=== PATIENT | male | born 1975 | race Asian ===

== ENCOUNTER 2024-05-11 15:25 | Emergency (ER) | payer MEDICAID, SELFPAY ==
[2024-05-11 15:52] VITALS: BP 127/84; PULSE 79; RESP 19; TEMP 36.9; O2SAT 96; BMI 33.5
--- NOTE | 2024-05-11 15:55 | XR_ITS ---
Examination: Abdomen sonogram, Limited Date and time of exam: May 11, 2024 1759 hrs. Indications: Right upper abdominal pain beginning 2 days ago Technique: Real-time lopez scale transabdominal sonographic images of the upper abdomen obtained. Findings: Cholelithiasis, negative for cholecystitis Abnormal enlargement, bile duct 0.8 cm Pancreatic head 2.5 cm Liver 16 cm fatty infiltration no focal liver lesions Normal hepatopedal portal venous oh Patent IVC Impression: Cholelithiasis, negative for cholecystitis Abnormal enlargement, bile duct 0.8 cm, recommend MRCP follow-up to exclude common bile duct stones and/or stricture
--- NOTE | 2024-05-11 15:56 | PD.EDRME ---
Rapid Medical Screening Exam RME Arrival date/time: 05/11/24 15:25 48-year-old male with history of cholelithiasis presents to the emergency department complaint of right upper abdominal pain Chief Complaint: Abdominal Pain Time Seen by Provider: 05/11/24 15:50 Vital signs: Vital Signs Temperature 98.5 F 05/11/24 15:52 Pulse Rate 79 05/11/24 15:52 Respiratory Rate 19 05/11/24 15:52 Blood Pressure 127/84 05/11/24 15:52 Pulse Oximetry (%) 96 05/11/24 15:52 Oxygen Delivery Method Room Air 05/11/24 15:52
[2024-05-11] MEDS: HYDROcodone/APAP 5/325 TABLET 1 TAB PO (16:25)
[2024-05-11 16:34] LABS: Collection Type, Urine Clean Catch
[2024-05-11 16:41] LABS: Basophils % (Auto) 0 % (0-2.5); Eosinophils # (Auto) 0.1 Thou/mm3 (0.0-0.5); Eosinophils % (Auto) 1 % (0-10); Hematocrit 43.7 % (41.0-53.0); Hemoglobin 14.9 g/dL (13.5-16.0); Immature Granulocytes % (Auto) 0 % (0-0); Immature Granulocytes Auto 0.02 Thou/mm3 (0.00-0.00); Lymphocytes # (Auto) 1.5 Thou/mm3 (1.0-4.8); Lymphocytes % (Auto) 24 % (10-50); Mean Corpuscular HGB Conc 34.1 g/dl (31.0-37.0); Mean Corpuscular Hemoglobin 31.2 pg (25.0-35.0); Mean Corpuscular Volume 91 fL (80-100); Monocytes # (Auto) 0.4 Thou/mm3 (0.0-0.8); Monocytes % (Auto) 7 % (0-12); Neutrophils # (Auto) 4.1 Thou/mm3 (1.8-7.7); Neutrophils % (Auto) 68 % (37-80); Nucleated Red Blood Cell % 0 /100 WBC (0); Platelet Count 201 Thou/mm3 (140-440); RDW Standard Deviation 45.7 fL (35.1-43.9); Red Blood Count 4.78 Miln/mm3 (4.50-5.90)
[2024-05-11 16:51] LABS: Bacteria,Urine Rare; Bilirubin,Urine 1+ (Negative); Blood,Urine Negative (Negative); Clarity,Urine Clear (Clear/Hazy); Color,Urine Yellow (Lt Yel-Yel); Culture Indicated,Urine Not Indicated; Glucose, Urine Negative (Negative); Ketones,Urine Negative (Negative); Leukocyte Esterase,Urine Negative (Negative); Nitrite,Urine Negative (Negative); PH,Urine 6.5 (5.0-7.0); Protein,Urine 1+ (Neg - Trace); RBC,Urine 5 /hpf (0-3); Squamous Epithelial Cell,Urine 1 /hpf (0-5); WBC,Urine 1 /hpf (0-5)
[2024-05-11 17:09] LABS: Alanine Aminotransferase 454 U/L (10-49); Albumin, Serum 4.5 gm/dL (3.5-5.0); Albumin/Globulin Ratio 1.4 (1.2-2.2); Alkaline Phosphatase 314 U/L (46-116); Anion Gap 6 (7-16); Aspartate Amino Transferase 273 U/L (0-34); BUN/Creatinine Ratio 13 Ratio (12-20); Bilirubin,Total 1.7 mg/dL (0.3-1.2); Blood Urea Nitrogen 14 mg/dL (9-23); Calcium 9.6 mg/dL (8.3-10.6); Calcium (Corrected) 9.6 mg/dL (8.5-10.1); Carbon Dioxide 26.8 mMol/L (20.0-31.0); Chloride 104 mMol/L (98-107); Creatinine (Component) 1.1 mg/dL (0.6-1.3); Estimated Creatinine Clearance 82.4 mL/min (>60); Globulin 3.2 gm/dL (2.3-3.5); Glucose 114 mg/dL (74-106); Lipase 41 U/L (12-53); Osmolality,Calculated 275 (275-295); Potassium 3.7 mMol/L (3.4-5.1); Sodium 137 mMol/L (136-145); Total Protein 7.7 gm/dL (5.7-8.2); eGFR > 60 See Note
[2024-05-11 21:13] VITALS: BP 165/108; PULSE 66; RESP 17; TEMP 36.8; O2SAT 98
--- NOTE | 2024-05-11 21:35 | EDNOTE_ITS ---
ED General RME/HPI General Chief complaint: Abdominal Pain Stated complaint: GALLBLADDDER PAIN EVERY TIME EATING / DRINKING Time Seen by Provider: 05/11/24 15:50 Arrival date/time: 05/11/24 15:25 CC: Right upper quadrant abdominal pain HPI ongoing for the past 6 to 7 days with persistent nausea and states he is also had some weight loss. No prior history of similar events. Patient denies chest pain shortness of breath or difficulty breathing. Currently the pain is a 6 to an 8 on a 10 scale patient is not writhing and not tachycardic. No active vomiting at the time of exam. RME / HPI RME / HPI narrative: 05/11/24 15:25 48-year-old male with history of cholelithiasis presents to the emergency department complaint of right upper abdominal pain Related Data Home Medications ?Medication ?Instructions ?Recorded ?Confirmed isavuconazonium sulfate 186 mg 186 mg PO QDAY 09/24/23 04/28/24 capsule (Cresemba) Previous Rx's ?Medication ?Instructions ?Recorded entecavir 0.5 mg tablet 0.5 mg PO QDAY #30 tabs 11/17/23 metoprolol succinate 25 mg 25 mg PO QDAY 30 days #30 tabs 12/08/23 tablet,extended release 24 hr zolpidem 5 mg tablet (Ambien) 5 mg PO QHS #30 tabs 01/05/24 sildenafil 25 mg tablet (Viagra) 25 mg PO QDAY PRN sexual activity 01/26/24 #30 tabs trazodone 50 mg tablet 25 mg (1/2 x 50 mg) PO QHS PRN 01/26/24 insomnia #30 tabs bupropion HCl 150 mg 24 hr tablet, 300 mg (2 x 150 mg) PO QAM #30 tabs 03/17/24 extended release hydrocodone 5 mg-acetaminophen 325 1 tab PO Q8H PRN pain #60 tabs 03/17/24 mg tablet sacubitril 24 mg-valsartan 26 mg 1 tab PO BID #60 tabs 03/17/24 tablet (Entresto) simethicone 80 mg chewable tablet 80 mg PO QHS #30 tabs 03/17/24 (Gas Relief (simethicone)) spironolactone 25 mg tablet 25 mg PO QDAY #30 tabs 03/17/24 hydrocodone 5 mg-acetaminophen 325 2 tab PO TID PRN pain #30 tabs 04/01/24 mg tablet oxycodone-acetaminophen 5 mg-325 1 tab PO BID #14 tabs 04/03/24 mg tablet (Percocet) aspirin 81 mg tablet,delayed 81 mg PO QDAY 30 days #30 tabs 05/05/24 release (Adult Low Dose Aspirin) furosemide 20 mg tablet (Lasix) 20 mg PO BID #60 tabs 05/05/24 gabapentin 300 mg capsule 600 mg (2 x 300 mg) PO TID #90 caps 05/05/24 hydrocodone 5 mg-acetaminophen 300 1 tab PO BID PRN pain #10 tabs 05/05/24 mg tablet hydrocortisone 1 % topical cream 1 applic topical QID PRN put for 05/05/24 (Cortisone (hydrocortisone)) itching #28.4 grams valacyclovir 1 gram tablet 1,000 mg PO QDAY #5 tabs 05/05/24 Allergies Allergy/AdvReac Type Severity Reaction Status Date / Time No Known Allergies Allergy Verified 05/11/24 15:27 Review of Systems Review of Systems Narrative Review of Systems: GEN: No fever, no chills, no weight loss EYES: No discharge, no visual changes, no pain HEENT: No ear pain, no congestion, no sore throat PULM: No shortness of breath, no cough, no congestion CV: No chest pain, no dyspnea on exertion, no palpitations GI: No nausea, no vomiting, no diarrhea, + pain, no constipation : No frequency, no urgency, no dysuria MUSC/SKEL: No joint pain, no back pain SKIN: No rash PSYCH: No hallucinations, no depression HEME/LYMPH: No easy bleeding or bruising tendencies NEURO: No weakness, no headache Past Medical History Past Medical History NEUROLOGIC: Negative Cerebrovascular Accident, Alzheimer's Disease or Parkinson's Disease CARDIAC: Positive Cardiac Disorders, Congenital Heart Disease, Valvular Heart Disease and Hypertension; Negative Myocardial Infarction, Congestive Heart Failure or Varicose Veins RESPIRATORY: Positive Cough; Negative Chronic Obstructive Pulmonary Disease (COPD), Asthma or Wheezing GASTROINTESTINAL: Positive Hepatitis GENITOURINARY: Negative Renal Disease or Kidney Stones REPRODUCTIVE: Negative Syphilis ENDOCRINE: Negative Diabetes Mellitus Type 1 or Diabetes Mellitus Type 2 HEMATOLOGIC: Positive Anemia; Negative Sickle Cell Disease PSYCHO/SOCIAL: Positive Recreational Drug Use and Anxiety OTHER HISTORY: Positive Hospitalization, Falls, Blood Transfusions and Hepatitis B Surgical History SURGICAL: Positive Cardiac Surgery, Valve Replacement and Pacemaker Social History SMOKING STATUS: Never smoker ED Exam Narrative Physical exam: [General: Obese in mild discomfort but not in any acute distress Head normocephalic HEENT: Within acceptable limits Neck is supple nontender Chest equal chest rise nontender to palpation Respiratory: Clear to auscultation no wheezes crackles or rubs CV: Rate rhythm is regular no murmurs rubs or clicks Abdomen is distended secondary to body habitus with right upper quadrant epigastric tenderness to palpation no left upper quadrant or lower occult quadrant tenderness with palpation. Back: No CVA tenderness no spinous process tenderness from cervical spine thoracic and lumbar spine Skin: Intact no petechiae rash induration ulceration or crepitus Extremities: Moving all extremity against resistance cap refill less than 2 seconds neurosensory intact Neuro: Awake alert oriented x3 Glascow coma 15 no focal deficits] Course Quality Measures none Orders Category Date Time Status US gall bladder Stat Exams 05/11/24 15:55 Completed CBC Stat Lab 05/11/24 16:21 Completed Comprehensive Metabolic Panel Stat Lab 05/11/24 16:21 Completed Lipase Stat Lab 05/11/24 16:21 Completed UA, C/S IF [Urinalysis, C/S if Indicated] Stat Lab 05/11/24 16:15 Completed HYDROcodone*/APAP 5/325 [Barre 5/325] Med 05/11/24 15:55 Discontinued 1 tab PO X1 ONE Ondansetron Odt [Zofran Odt] Med 05/11/24 21:42 Discontinued 4 mg PO X1 ONE oxyCODONE/APAP 5/325 [Percocet 5/325] Med 05/11/24 21:42 Discontinued 1 tab PO X1 ONE Vital Signs Vital signs: Vital Signs Temperature 98.5 F 05/11/24 15:52 Pulse Rate 79 05/11/24 15:52 Respiratory Rate 19 05/11/24 15:52 Blood Pressure 127/84 05/11/24 15:52 Pulse Oximetry (%) 96 05/11/24 15:52 Oxygen Delivery Method Room Air 05/11/24 15:52 [facility] Patient data External records reviewed:: [facility] previous records Clinical information provided by:: patient Social determinants that could affect healthcare access:: none Patient has the following chronic illnesses:: Aortic valve replacement x 2, pacemaker CHF hypertension How is presenting disease/condition affected by chronic disease/condition?: u neffected by Evaluation data The following diagnostics were reviewed and interpreted by me:: lab results and radiology exam(s) Lab and/or radiology exams considered but not ordered:: CBC shows no acute leukocytosis anemia thrombocytopenia CMP shows no acute electrolyte imbalances renal impairment T. bili 1.7 AST 2748 ALT of 454 Alk phos is 314 Urine is negative Ultrasound shows cholelithiasis with possible CBD obstruction, recommend MRCP Interpretation Summary: Patient has an appointment with his vermin exterminator at [facility] in [place] tomorrow morning patient was offered to hold in the emergency room until tomorrow morning for MRCP. The patient has declined this, is requesting mild pain medications his to drive him up to [facility], and he will check into the hospital at [place] tomorrow. Patient was again offered admission and explained ERCP require transfer to another facility if the MRCP was positive. The patient again declined holding [facility], and will drive straight up to [facility] in [place]. Medications Medications considered but not ordered:: None Medication administrations:: Medication Administration History Discontinued Medications Hydrocodone Bitart/Acetaminophen (Hydrocodone/Apap 5/325 Tablet) 1 tab PO X1 ONE Stop: 05/11/24 15:56 Last Admin: 05/11/24 16:25 Dose: 1 tab Documented By: ARCHANA Ondansetron HCl (Ondansetron Odt 4 Mg Tabrap) 4 mg PO X1 ONE; Protocol Stop: 05/11/24 21:43 Last Admin: 05/11/24 21:50 Dose: 4 mg Documented By: Oxycodone/Acetaminophen (Oxycodone/Apap 5/325 Tablet) 1 tab PO X1 ONE Stop: 05/11/24 21:43 Last Admin: 05/11/24 21:49 Dose: 1 tab Documented By: None Consultations Consultation(s) initiated? (list below): No Diagnosis Differential Diagnosis ED Complaint MDM: Cholelithiasis cholecystitis pancreatitis choledocholithiasis Most likely diagnosis given after review of the tests above:: Right upper quadrant abdominal pain cholelithiasis Admission Indicated Admission indicated?: not indicated Explain why admission is indicated or not indicated:: Patient declined overnight hold in the ER for MRCP in the morning and will drive up to another facility Admission Request Was there a request for admission?: No Disposition Plan Disposition Plan: Discharge Discharge Attestation Discharge Attestation: The patient and all family members were given an opportunity to ask questions and understood the discharge instructions. Discharge instructions specifically effects, indications for sooner follow up or return to the emergency department, and the expected course of current diagnosis. Patient condition: Stable Medical Decision Making Differential Diagnosis Differential Diagnosis: Cholelithiasis cholecystitis pancreatitis choledocholithiasis Lab Data 05/11/24 16:21 05/11/24 16:21 Labs: Lab Results 05/11/24 05/11/24 Range/Units 16:15 16:21 WBC 6.0 (3.8-10.6) Thou/mm3 RBC 4.78 (4.50-5.90) Miln/mm3 Hgb 14.9 (13.5-16.0) g/dL Hct 43.7 (41.0-53.0) % MCV 91 (80-100) fL MCH 31.2 (25.0-35.0) pg MCHC 34.1 (31.0-37.0) g/dl RDW Std Deviation 45.7 H (35.1-43.9) fL Plt Count 201 (140-440) Thou/mm3 Neut % (Auto) 68 (37-80) % Lymph % (Auto) 24 (10-50) % [place] % (Auto) 7 (0-12) % Eos % (Auto) 1 (0-10) % Baso % (Auto) 0 (0-2.5) % Neut # (Auto) 4.1 (1.8-7.7) Thou/mm3 Lymph # (Auto) 1.5 (1.0-4.8) Thou/mm3 [place] # (Auto) 0.4 (0.0-0.8) Thou/mm3 Eos # (Auto) 0.1 (0.0-0.5) Thou/mm3 Baso # (Auto) 0.0 (0.0-0.2) Thou/mm3 Immature Gran # (Auto) 0.02 H (0.00-0.00) Thou/mm3 Absolute Nucleated RBC 0.00 (0.00-0.00) Thou/mm3 Immature Gran % 0 (0-0) % Nucleated RBC % 0 (0) /100 WBC Sodium 137 (136-145) mMol/L Potassium 3.7 (3.4-5.1) mMol/L Chloride 104 (98-107) mMol/L Carbon Dioxide 26.8 (20.0-31.0) mMol/L Anion Gap 6 L (7-16) BUN 14 (9-23) mg/dL Creatinine 1.1 (0.6-1.3) mg/dL Estim Creat Clear Calc 82.4 (>60) mL/min eGFR > 60 (60 - ) See Note BUN/Creatinine Ratio 13 (12-20) Ratio Glucose 114 H (74-106) mg/dL Calculated Osmolality 275 (275-295) Calcium 9.6 (8.3-10.6) mg/dL Corrected Calcium 9.6 (8.5-10.1) mg/dL Total Bilirubin 1.7 H (0.3-1.2) mg/dL AST 273 H (0-34) U/L ALT 454 H (10-49) U/L Alkaline Phosphatase 314 H (46-116) U/L Total Protein 7.7 (5.7-8.2) gm/dL Albumin 4.5 (3.5-5.0) gm/dL Globulin 3.2 (2.3-3.5) gm/dL Albumin/Globulin Ratio 1.4 (1.2-2.2) Lipase 41 (12-53) U/L Ur Collection Type Clean Catch Urine Color Yellow (Lt Yel-Yel) Urine Clarity Clear (Clear/Hazy) Urine pH 6.5 (5.0-7.0) Ur Specific [place] 1.030 (1.001-1.035) Urine Protein 1+ A (Neg - Trace) Urine Glucose (UA) Negative (Negative) Urine Ketones Negative (Negative) Urine Blood Negative (Negative) Urine Nitrite Negative (Negative) Urine Bilirubin 1+ A (Negative) Urine Urobilinogen (Auto) 8.0 (0.0-1.0) mg/dL Ur Leukocyte Esterase Negative (Negative) Urine RBC 5 H (0-3) /hpf Urine WBC 1 (0-5) /hpf Ur Squamous Epith Cells 1 (0-5) /hpf Urine Bacteria Rare (None) Ur Culture Indicated? Not Indicated Discharge Plan Plan Patient Disposition: HOME (Self Care) Patient condition on transfer: Stable Prescriptions/Referrals Prescriptions/Med Rec: No Action Cresemba 186 mg capsule 186 mg PO QDAY zolpidem [Ambien] 5 mg tablet 5 mg PO QHS Qty: 30 0RF Rx Instructions: may repeat once if no response in 30-60 minutes sildenafil [Viagra] 25 mg tablet 25 mg PO QDAY PRN (Reason: sexual activity) Qty: 30 0RF Rx Instructions: administer 30 minutes to 4 hours before activity trazodone 50 mg tablet 25 mg PO QHS PRN (Reason: insomnia) Qty: 30 1RF metoprolol succinate 25 mg tablet extended release 24 hr 25 mg PO QDAY 30 Days Qty: 30 2RF bupropion HCl 150 mg tablet extended release 24 hr 300 mg PO QAM Qty: 30 5RF Entresto 24-26 mg tablet 1 tab PO BID Qty: 60 5RF simethicone [Gas Relief (simethicone)] 80 mg tablet,chewable 80 mg PO QHS Qty: 30 0RF spironolactone 25 mg tablet 25 mg PO QDAY Qty: 30 5RF hydrocodone-acetaminophen 5-325 mg tablet 1 tab PO Q8H MDD 3 tabs/day PRN (Reason: pain) Qty: 60 0RF hydrocodone-acetaminophen 5-325 mg tablet 2 tab PO TID MDD 6 PRN (Reason: pain) Qty: 30 0RF hydrocodone-acetaminophen 5-300 mg tablet 1 tab PO BID MDD 10 mg PRN (Reason: pain) Qty: 10 0RF entecavir 0.5 mg tablet 0.5 mg PO QDAY MDD 0.5 mg Qty: 30 2RF furosemide [Lasix] 20 mg tablet 20 mg PO BID Qty: 60 5RF aspirin [Adult Low Dose Aspirin] 81 mg tablet,delayed release (DR/EC) 81 mg PO QDAY 30 Days Qty: 30 2RF valacyclovir 1 gram tablet 1,000 mg PO QDAY Qty: 5 0RF hydrocortisone [Cortisone (hydrocortisone)] 1 % cream 1 applic topical QID PRN (Reason: put for itching) Qty: 28.4 0RF gabapentin 300 mg capsule 600 mg PO TID Qty: 90 0RF oxycodone-acetaminophen [Percocet] 5-325 mg tablet 1 tab PO BID MDD 2 Qty: 14 0RF Referrals: No Primary/Family,Physician [Primary Care Provider] - In 1 week Problem List Clinical Impression: Abdominal pain, acute, right upper quadrant Patient/Caregiver Discharge Instructions Education Materials: Abdominal Pain Additional Instructions: You have an enlarged common bile duct at 0.8 cm we recommend MRCP please follow- up promptly at what ever emergency room you are close to for MRCP and probable ERCP. You are welcome to return to this emergency room at any time. Print Language: Welsh Stand Alone Forms: Marilee Award Info., Work/School Release, Patient Portal Info Letter MD Attestation Attestation The patient was seen by the midlevel practitioner. I, the co-signing physician, was present during the entire ER visit. While I did not physically examine the patient, I was available for consultation as needed.
[2024-05-11] MEDS: oxyCODONE/APAP 5/325 TABLET 1 TAB PO (21:49)
[2024-05-11] MEDS: ONDANSETRON ODT 4 MG TABRAP PO (21:50)
== END 2024-05-11 22:00 | disposition home or self-care (01) ==
PROVIDERS: Nurse Practitioner Primary Care; Emergency Provider Emergency Medicine
DX: K80.20 Calculus of gallbladder without cholecystitis without obstruction (principal)
CPT/HCPCS: 36415; 76705; 80053; 81001; 83690; 85025; 99284; Q0162; A9270

== ENCOUNTER 2024-05-19 13:39 | Outpatient (AMB) | payer MEDICAID, SELFPAY ==
[2024-05-19 13:47] VITALS: BP 115/77; PULSE 82; RESP 17; TEMP 36.7; O2SAT 98; BMI 32.5
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
== END 2024-05-19 14:39 | disposition home or self-care (01) ==
LOC: HODAHC 13:39
PROVIDERS: PCP Internal Medicine; Referring Provider Internal Medicine; Supervising Provider Internal Medicine; Visit Provider Internal Medicine
DX: K80.20 Calculus of gallbladder without cholecystitis without obstruction (principal); F32.9 Major depressive disorder, single episode, unspecified; G62.9 Polyneuropathy, unspecified; G47.00 Insomnia, unspecified; B18.1 Chronic viral hepatitis B without delta-agent; I50.20 Unspecified systolic (congestive) heart failure; Z79.899 Other long term (current) drug therapy
CPT/HCPCS: 99213; G0463

== ENCOUNTER 2024-07-07 13:07 | Outpatient (AMB) | payer MEDICAID, SELFPAY ==
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
[2024-07-07 13:14] VITALS: BP 146/90; PULSE 70; RESP 16; TEMP 36.3; O2SAT 98; BMI 33.1
== END 2024-07-07 13:58 | disposition home or self-care (01) ==
LOC: HODAHC 13:07
PROVIDERS: PCP Internal Medicine; Referring Provider Internal Medicine; Supervising Provider Internal Medicine; Visit Provider Internal Medicine
DX: Z76.0 Encounter for issue of repeat prescription (principal); K80.20 Calculus of gallbladder without cholecystitis without obstruction; F32.9 Major depressive disorder, single episode, unspecified; F51.01 Primary insomnia; B18.1 Chronic viral hepatitis B without delta-agent; I50.20 Unspecified systolic (congestive) heart failure; G62.9 Polyneuropathy, unspecified
CPT/HCPCS: 99213; G0463

== ENCOUNTER 2024-08-11 14:04 | Outpatient (AMB) | payer MEDICAID, SELFPAY ==
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
[2024-08-11 14:01] VITALS: BP 111/74; PULSE 87; RESP 17; TEMP 36.6; O2SAT 98; BMI 33.7
== END 2024-08-11 14:48 | disposition home or self-care (01) ==
LOC: HODAHC 14:04
PROVIDERS: PCP Internal Medicine; Referring Provider Internal Medicine; Supervising Provider Internal Medicine; Visit Provider Internal Medicine
DX: K80.20 Calculus of gallbladder without cholecystitis without obstruction (principal); Z76.0 Encounter for issue of repeat prescription; F32.9 Major depressive disorder, single episode, unspecified; G62.9 Polyneuropathy, unspecified; F51.01 Primary insomnia; B18.1 Chronic viral hepatitis B without delta-agent; I50.20 Unspecified systolic (congestive) heart failure; E66.811 Obesity, class 1; Z68.33 Body mass index [BMI] 33.0-33.9, adult
CPT/HCPCS: 99213; G0463

== ENCOUNTER 2024-09-08 13:17 | Outpatient (AMB) | payer MEDICAID, SELFPAY ==
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
[2024-09-08 13:24] VITALS: BP 132/85; PULSE 78; RESP 16; TEMP 36.8; O2SAT 99; BMI 33.7
== END 2024-09-08 14:20 | disposition home or self-care (01) ==
LOC: HODAHC 13:17
PROVIDERS: PCP Internal Medicine; Referring Provider Internal Medicine; Supervising Provider Internal Medicine; Visit Provider Internal Medicine
DX: E66.811 Obesity, class 1 (principal); Z68.33 Body mass index [BMI] 33.0-33.9, adult; Z71.2 Person consulting for explanation of examination or test findings
CPT/HCPCS: 99213; G0463

== ENCOUNTER 2024-09-19 06:15 | Emergency (ER) | payer MEDICAID, SELFPAY ==
[2024-09-19 06:15] VITALS: BMI 33.6
[2024-09-19 06:19] VITALS: BP 163/80; PULSE 91; RESP 18; TEMP 37; O2SAT 98
--- NOTE | 2024-09-19 06:32 | PD.EDRME ---
Rapid Medical Screening Exam RME Arrival date/time: 09/19/24 06:15 .This is a 49-year-old male who presents to the emergency department with complaints of right upper quadrant abdominal pain. Recent ERCP for gallstones I have greeted and performed a focused initial assessment of this patient. Initial appropriate labs ordered at this time. A comprehensive ED assessment and evaluation of the patient and analysis of all test and completion of medical decision making process will be conducted by additional ED provider. Chief Complaint: Abdominal Pain Time Seen by Provider: 09/19/24 06:21 Vital signs: Vital Signs Temperature 98.6 F 09/19/24 06:19 Pulse Rate 91 09/19/24 06:19 Respiratory Rate 18 09/19/24 06:19 Blood Pressure 163/80 H 09/19/24 06:19 Pulse Oximetry (%) 98 09/19/24 06:19 Oxygen Delivery Method Room Air 09/19/24 06:19
--- NOTE | 2024-09-19 06:34 | XR_ITS ---
Examination: Abdomen sonogram, Limited Date and time of exam: September 19, 2024 0704 hours INDICATIONS: Onset right upper abdominal pain beginning 2 days ago Technique: Real-time lopez scale transabdominal sonographic images of the upper abdomen obtained. Findings: Multiple gallstones Gallbladder wall is thickened 0.49 cm Common bile duct is enlarged 0.7 cm 8 mm stone in the common bile duct Pancreatic head 3.0 cm Liver 16.7 cm fatty infiltration no focal liver lesions Normal hepatopedal portal venous flow Patent IVC IMPRESSION: Cholelithiasis Suspicious for cholecystitis Enlarged common bile duct with 8 mm echogenic focus consistent with common bile duct stone Recommend MRCP follow-up
[2024-09-19 07:09] LABS: Basophils % (Auto) 0 % (0-2.5); Eosinophils % (Auto) 0 % (0-10); Hematocrit 46.7 % (41.0-53.0); Immature Granulocytes % (Auto) 0 % (0-0); Immature Granulocytes Auto 0.01 Thou/mm3 (0.00-0.00); Lymphocytes # (Auto) 1.1 Thou/mm3 (1.0-4.8); Lymphocytes % (Auto) 13 % (10-50); Mean Corpuscular HGB Conc 34.3 g/dl (31.0-37.0); Mean Corpuscular Hemoglobin 30.8 pg (25.0-35.0); Mean Corpuscular Volume 90 fL (80-100); Monocytes # (Auto) 0.4 Thou/mm3 (0.0-0.8); Monocytes % (Auto) 4 % (0-12); Neutrophils # (Auto) 7.6 Thou/mm3 (1.8-7.7); Neutrophils % (Auto) 83 % (37-80); Nucleated Red Blood Cell % 0 /100 WBC (0); Platelet Count 233 Thou/mm3 (140-440); RDW Standard Deviation 41.2 fL (35.1-43.9); Red Blood Count 5.19 Miln/mm3 (4.50-5.90); White Blood Count 9.2 Thou/mm3 (3.8-10.6)
[2024-09-19 07:21] LABS: Alanine Aminotransferase 11 U/L (10-49); Albumin, Serum 4.4 gm/dL (3.5-5.0); Albumin/Globulin Ratio 1.5 (1.2-2.2); Alkaline Phosphatase 89 U/L (46-116); Anion Gap 9 (7-16); Aspartate Amino Transferase 18 U/L (0-34); BUN/Creatinine Ratio 12 Ratio (12-20); Bilirubin,Total 0.3 mg/dL (0.3-1.2); Blood Urea Nitrogen 16 mg/dL (9-23); Calcium 9.8 mg/dL (8.3-10.6); Calcium (Corrected) 9.8 mg/dL (8.5-10.1); Carbon Dioxide 22.4 mMol/L (20.0-31.0); Chloride 106 mMol/L (98-107); Creatinine (Component) 1.3 mg/dL (0.6-1.3); Estimated Creatinine Clearance 69.1 mL/min (>60); Glucose 157 mg/dL (74-106); Lipase 41 U/L (12-53); Osmolality,Calculated 278 (275-295); Potassium 4.1 mMol/L (3.4-5.1); Sodium 137 mMol/L (136-145); Total Protein 7.4 gm/dL (5.7-8.2); eGFR > 60 See Note
[2024-09-19 07:34] LABS: Collection Type, Urine Clean Catch
[2024-09-19 08:02] LABS: Bilirubin,Urine Negative (Negative); Blood,Urine Negative (Negative); Clarity,Urine Clear (Clear/Hazy); Color,Urine Yellow (Lt Yel-Yel); Glucose, Urine Trace (Negative); Ketones,Urine Negative (Negative); Leukocyte Esterase,Urine Negative (Negative); Nitrite,Urine Negative (Negative); Protein,Urine Trace (Neg - Trace); RBC,Urine 1 /hpf (0-3); Specific Gravity,Urine 1.028 (1.001-1.035); Squamous Epithelial Cell,Urine < 1 /hpf (0-5); Urobilinogen,Urine Negative mg/dL (0.0-1.0); WBC,Urine 1 /hpf (0-5)
[2024-09-19] MEDS: HYDROcodone/APAP 5/325 TABLET 1 TAB PO (09:55)
[2024-09-19] MEDS: ONDANSETRON ODT 4 MG TABRAP PO (09:56)
[2024-09-19 13:31] VITALS: BP 153/96; PULSE 74; RESP 24; TEMP 36.6; O2SAT 99
--- NOTE | 2024-09-19 13:54 | EDNOTE_ITS ---
ED Abdominal Pain RME/HPI General Chief Complaint: Abdominal Pain Stated complaint: RIGHT UPPER ABD PAIN X 1DAY Time seen by provider: 09/19/24 06:21 Arrival date/time: 09/19/24 06:15 49 year old male present to emergency room with c/o RUQ pain worsen the past few days. Pt had ERCP for gallstones and stent placement without gall bladder removal. LOCATION: RUQ SEVERITY: Symptoms are described as being severe with limitations on activities of daily living QUALITY: Symptoms are described as being cramping CONTEXT: The patient is unable to identify any inciting events. DURATION/TIMING: The symptoms started approximately one day ago and have been waxing/waning but always present without ever completely resolving. ASSOCIATED SYMPTOMS: The patient is unable to identify any other associated symptoms. MODIFYING FACTORS: The patient is unable to identify any alleviating or aggravating symptoms. PERTINENT ROS: no fevers, no anorexia, no nausea or vomiting, no diarrhea, no ripping or tearing sensations, no syncope or presyncopal symptoms, denies trauma, denies genital pain REVIEW OF SYSTEMS: See History of Present Illness - with the exception of those mentioned in the history of present illness, all other systems reviewed and reported as negative GENERAL: In general the patient is awake, interactive, in an emergency department gurney. HEAD/EYES/EARS/NOSE/THROAT: normo-cephalic, atraumatic, mucus membranes are moist, anicteric, palpebral conjunctiva is pink, trachea is midline. CARDIOVASCULAR: regular rate and regular rhythm, no murmurs, heart sounds are not distant, strong pulses in all four extremities that are equal and symmetric bilateral upper and lower extremities, normal capillary refill. CHEST/PULMONARY: normal chest rise and fall, good air movement, clear to auscultation bilaterally, normal inspiratory to expiratory ratios without evidence of respiratory distress. NECK: No midline/Paraspinal tenderness, no step off ROM/Strenght intact No Kernig and bruzinski sign. No trauma ABDOMEN: soft, RUQ tenderness, no masses appreciated BACK: normal range of motion without pain. NEUROLOGICAL: cranio-facial features are symmetric, moves all four extremities equally without obvious limitations or weakness. EXTREMITY: no tenderness to palpation over the long bones or large joints of the bilateral upper and lower extremities, no joint swelling, no joint erythema, no signs of trauma, no unilateral leg swelling and no peripheral edema. SKIN: warm, dry, well-perfused, no jaundice, no rash, no telangiectasias or petechia. PSYCH: calm, cooperative, no evidence of psychosis or agitation RME / HPI RME / HPI narrative: 09/19/24 06:15 .This is a 49-year-old male who presents to the emergency department with complaints of right upper quadrant abdominal pain. Recent ERCP for gallstones I have greeted and performed a focused initial assessment of this patient. Initial appropriate labs ordered at this time. A comprehensive ED assessment and evaluation of the patient and analysis of all test and completion of medical decision making process will be conducted by additional ED provider. Related Data Previous Rx's ?Medication ?Instructions ?Recorded valacyclovir 1 gram tablet 1,000 mg PO QDAY #5 tabs aspirin 81 mg tablet,delayed 81 mg PO QDAY 30 days #30 tabs 07/07/24 release (Adult Low Dose Aspirin) hydrocortisone 1 % topical cream 1 applic topical QID PRN put for 07/07/24 (Cortisone (hydrocortisone)) itching #28.35 grams entecavir 0.5 mg tablet 0.5 mg PO QDAY #30 tabs 07/01 08/24 bupropion HCl 150 mg 24 hr tablet, 300 mg (2 x 150 mg) PO QAM #30 tabs 08/11/24 extended release furosemide 20 mg tablet (Lasix) 20 mg PO BID #60 tabs 08/11/24 gabapentin 300 mg capsule 600 mg (2 x 300 mg) PO TID # 90 caps 08/11/24 metoprolol succinate 25 mg 25 mg PO QDAY 30 days #30 t abs 08/11/24 tablet,extended release 24 hr sacubitril 24 mg-valsartan 26 mg 1 tab PO BID #60 tabs 08/11/24 tablet (Entresto) sildenafil 25 mg tablet (Viagra) 25 mg PO QDAY PRN sex ual activity 08/11/24 #30 tabs spironolactone 25 mg tablet 25 mg PO QDAY #30 tabs 06/23 trazodone 50 mg tablet 25 mg (1/2 x 50 mg) PO QHS P RN 08/11/24 insomnia #30 tabs isavuconazonium sulfate 186 mg 186 mg PO QDAY #30 caps 09/03/24 capsule (Cresemba) loratadine 10 mg tablet (Claritin) 10 mg PO QDAY PRN a llergy symptoms 09/08/24 #30 tabs Allergies Allergy/AdvReac Type Severity Reaction Status Date / Time No Known Allergies Allergy Verified 09/08/24 13:25 Course Course Course Narrative: cbc/cmp no acute findings US: IMPRESSION: Cholelithiasis Suspicious for cholecystitis Enlarged common bile duct with 8 mm echogenic focus consistent with common bile duct stone Recommend MRCP follow-up MRCP is not available, pt will return tommorow in the morning to get study done. pain has resolved with IV pain medication given in ED. no fever, elevated wbc or sign of infection Quality Measures none Orders Category Date Time Status MRI Screening NOW Care 09/19/24 08:35 Active MR MRCP Stat Exams 09/19/24 Ordered US gall bladder Stat Exams 09/19/24 06:34 Completed CBC Stat Lab 09/19/24 06:51 Completed Comprehensive Metabolic Panel Stat Lab 09/19/24 06:51 Completed Lipase Stat Lab 09/19/24 06:51 Completed Urinalysis Stat Lab 09/19/24 07:08 Completed HYDROcodone*/APAP 5/325 [[place] 5/325] Med 09/19/24 09:16 Discontinued 1 tab PO X1 ONE HYDROmorphone INJ [Dilaudid Inj] Med 09/19/24 14:07 Discontinued 1 mg IVP X1 ONE HYDROmorphone INJ [Dilaudid Inj] Med 09/19/24 19:07 Discontinued 1 mg IVP X1 ONE Ondansetron Odt [Zofran Odt] Med 09/19/24 09:16 Discontinued 4 mg PO X1 ONE Sodium Chloride 0.9% 1000 ml [Ns] 1,000 ml Med 09/19/24 14:08 Discontinued IV 999 mls/hr Reevaluation(s) Reevaluation #1: pain is improved. and will like another dose before going home. Vital Signs Vital signs: Vital Signs Temperature 98.6 F 09/19/24 06:19 Pulse Rate 91 09/19/24 06:19 Respiratory Rate 18 09/19/24 06:19 Blood Pressure 163/80 H 09/19/24 06:19 Pulse Oximetry (%) 98 09/19/24 06:19 Oxygen Delivery Method Room Air 09/19/24 06:19 Abdominal Pain MDM MDM Narrative MDM Narrative:: Biliary Colic Presentation most consistent with?biliary colic, without evidence of infection. ED Interventions:?analgesia PRN (dialudid 1mg x2 ) ED Workup: CBC, CMP, , Lipase, Abdominal US Disposition?Given that patient has normal vital signs, their pain was controlled in the emergency department, .Discharge home since MRCP is not available on weekend, pt will return tomorrow in the morning to get study done.? Patient data External records reviewed:: [facility] previous records Clinical information provided by:: patient Social determinants that could affect healthcare access:: none Patient has the following chronic illnesses:: gallstone , PAD, atrial fib DVT How is presenting disease/condition affected by chronic disease/condition?: exacerbated by Evaluation data The following diagnostics were reviewed and interpreted by me:: lab results and radiology exam(s) Lab and/or radiology exams considered but not ordered:: n/a Interpretation Summary: US: IMPRESSION: Cholelithiasis Suspicious for cholecystitis Enlarged common bile duct with 8 mm echogenic focus consistent with common bile duct stone Recommend MRCP follow-up Medications / Prescriptions Medications or Prescriptions considered but not ordered:: n/a Medication administrations:: Medication Administration History Discontinued Medications Hydrocodone Bitart/Acetaminophen (Hydrocodone/Apap 5/325 Tablet) 1 tab PO X1 ONE Stop: 09/19/24 09:17 Last Admin: 09/19/24 09:55 Dose: 1 tab Documented By: KRISHNA Hydromorphone HCl (Hydromorphone Inj 2 Mg/Ml Vial) 1 mg IVP X1 ONE Stop: 09/19/24 14:08 Last Admin: 09/19/24 14:19 Dose: 1 mg Documented By: MOON Hydromorphone HCl (Hydromorphone Inj 2 Mg/Ml Vial) 1 mg IVP X1 ONE Stop: 09/19/24 19:08 Last Admin: 09/19/24 19:33 Dose: 1 mg Documented By: KG Sodium Chloride (Ns) 1,000 mls @ 999 mls/hr IV .Q1H1M ONE Stop: 09/19/24 15:08 Last Infusion: 09/19/24 16:22 Dose: Infused Documented By: Admin: 09/19/24 14:20 Dose: 999 mls/hr Documented By: MOON Ondansetron HCl (Ondansetron Odt 4 Mg Tabrap) 4 mg PO X1 ONE; Protocol Stop: 09/19/24 09:17 Last Admin: 09/19/24 09:56 Dose: 4 mg Documented By: SM as schedule Consultations Consultation(s) initiated? (list below): No Diagnosis Differential diagnosis abdominal pain: abdominal pain, gastroenteritis, pancreatitis and other (gallstone ) Most likely diagnosis given after review of the tests above:: gallstones Admission Indicated Admission indicated?: not indicated Admission Request Was there a request for admission?: No Disposition Plan Disposition Plan: Discharge Discharge Attestation Discharge Attestation: The patient and all family members were given an opportunity to ask questions and understood the discharge instructions. Discharge instructions specifically effects, indications for sooner follow up or return to the emergency department, and the expected course of current diagnosis. Patient condition: Stable Discharge Plan Plan Patient Disposition: HOME (Self Care) Health Concerns: Return to ED for tomorrow morning to get a MRCP Return to ED if symptoms worsen Prescriptions/Referrals Prescriptions/Med Rec: No Action bupropion HCl 150 mg tablet extended release 24 hr 300 mg PO QAM Qty: 30 5RF furosemide [Lasix] 20 mg tablet 20 mg PO BID Qty: 60 2RF gabapentin 300 mg capsule 600 mg PO TID Qty: 90 0RF metoprolol succinate 25 mg tablet extended release 24 hr 25 mg PO QDAY 30 Days Qty: 30 2RF Entresto 24-26 mg tablet 1 tab PO BID Qty: 60 5RF sildenafil [Viagra] 25 mg tablet 25 mg PO QDAY PRN (Reason: sexual activity) Qty: 30 0RF Rx Instructions: administer 30 minutes to 4 hours before activity spironolactone 25 mg tablet 25 mg PO QDAY Qty: 30 5RF trazodone 50 mg tablet 25 mg PO QHS PRN (Reason: insomnia) Qty: 30 1RF Cresemba 186 mg capsule 186 mg PO QDAY Qty: 30 0RF hydrocortisone [Cortisone (hydrocortisone)] 1 % cream 1 applic topical QID PRN (Reason: put for itching) Qty: 28.35 0RF aspirin [Adult Low Dose Aspirin] 81 mg tablet,delayed release (DR/EC) 81 mg PO QDAY 30 Days Qty: 30 2RF entecavir 0.5 mg tablet 0.5 mg PO QDAY MDD 0.5 mg Qty: 30 3RF loratadine [Claritin] 10 mg tablet 10 mg PO QDAY PRN (Reason: allergy symptoms) Qty: 30 2RF valacyclovir 1 gram tablet 1,000 mg PO QDAY Qty: 5 0RF Referrals: Temporary Provider,ED [Primary Care Provider] - In 1 week Problem List Clinical Impression: Gallstone Patient/Caregiver Discharge Instructions Education Materials: What Are Gallstones Print Language: Serbian Stand Alone Forms: Marilee Award Info., Patient Portal Info Letter
[2024-09-19] MEDS: HYDROmorphone INJ 2 MG/ML VIAL 1 MG IVP ×2 (14:19→19:33)
[2024-09-19] MEDS: SODIUM CHLORIDE 0.9% 1000 ML 1,000 ML 999 ML IV (14:20)
[2024-09-19 14:24] VITALS: BP 148/95; PULSE 80; RESP 21; O2SAT 97
[2024-09-19 16:03] VITALS: BP 142/97; PULSE 64; RESP 22; TEMP 36.7; O2SAT 99
[2024-09-19 18:26] VITALS: BP 121/84; PULSE 65; RESP 18; TEMP 36.7; O2SAT 98
== END 2024-09-19 21:00 | disposition home or self-care (01) ==
PROVIDERS: Nurse Practitioner Primary Care; Emergency Provider Emergency Medicine
DX: K80.20 Calculus of gallbladder without cholecystitis without obstruction (principal)
CPT/HCPCS: 36415; 76705; 80053; 81001; 83690; 85025; 96361; 96374; 96376; 99284; J3490; J7030; Q0162; A9270

== ENCOUNTER 2024-11-17 13:29 | Outpatient (AMB) | payer MEDICAID, SELFPAY ==
[2024-11-17 13:45] VITALS: BP 131/88; PULSE 77; RESP 18; TEMP 36.6; O2SAT 98; BMI 32.3
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
== END 2024-11-17 15:06 | disposition home or self-care (01) ==
LOC: HODAHC 13:29
PROVIDERS: PCP Internal Medicine; Referring Provider Internal Medicine; Supervising Provider Internal Medicine; Visit Provider Internal Medicine
DX: R00.2 Palpitations (principal); I38 Endocarditis, valve unspecified; I11.0 Hypertensive heart disease with heart failure; I50.20 Unspecified systolic (congestive) heart failure; E66.9 Obesity, unspecified; Z68.32 Body mass index [BMI] 32.0-32.9, adult; K80.20 Calculus of gallbladder without cholecystitis without obstruction; F32.9 Major depressive disorder, single episode, unspecified; G47.00 Insomnia, unspecified; Z95.4 Presence of other heart-valve replacement; Z95.0 Presence of cardiac pacemaker
CPT/HCPCS: 99213; G0463

== ENCOUNTER 2024-12-01 13:00 | Outpatient (AMB) | payer MEDICAID, SELFPAY ==
[2024-12-01 13:06] VITALS: BP 114/77; PULSE 73; RESP 18; TEMP 36.4; O2SAT 96; BMI 32.1
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
== END 2024-12-01 14:46 | disposition home or self-care (01) ==
LOC: HODAHC 13:00
PROVIDERS: PCP Internal Medicine; Referring Provider Internal Medicine; Supervising Provider Internal Medicine; Visit Provider Internal Medicine
DX: F41.9 Anxiety disorder, unspecified (principal); G47.00 Insomnia, unspecified; F33.9 Major depressive disorder, recurrent, unspecified; G62.9 Polyneuropathy, unspecified; I50.20 Unspecified systolic (congestive) heart failure
CPT/HCPCS: 99213; G0463

== ENCOUNTER 2025-01-14 11:06 | Outpatient (AMB) | payer MEDICAID, SELFPAY ==
[2025-01-14 11:21] VITALS: BP 147/93; PULSE 76; RESP 18; TEMP 36.8; O2SAT 97; BMI 31.8
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
== END 2025-01-14 13:06 | disposition home or self-care (01) ==
LOC: HODAHC 11:06
PROVIDERS: PCP Internal Medicine; Referring Provider Internal Medicine; Supervising Provider Internal Medicine
DX: F41.9 Anxiety disorder, unspecified (principal); F32.A Depression, unspecified; Z95.4 Presence of other heart-valve replacement; B18.1 Chronic viral hepatitis B without delta-agent; I50.20 Unspecified systolic (congestive) heart failure; G47.00 Insomnia, unspecified; G62.9 Polyneuropathy, unspecified
CPT/HCPCS: 99213; G0463

== ENCOUNTER 2025-02-02 22:05 | Emergency (ER) | payer MEDICAID, SELFPAY ==
[2025-02-02 22:07] VITALS: BMI 31.9
[2025-02-02 22:28] VITALS: BP 139/89; PULSE 97; RESP 18; TEMP 37.3; O2SAT 97
--- NOTE | 2025-02-02 22:35 | XR_ITS ---
Examination: CT abdomen with intravenous contrast CT pelvis with intravenous contrast 2-D coronal reconstructions 2-D sagittal reconstructions Date and time of exam:February 03, 2025, 0050 hours, comparison 03/10/2004. INDICATIONS: Right lower abdominal pain beginning on history. CTDI: vol (mGy) 10.7. DLP: (mGycm) 658 Technique: Multiple axial sections of the abdomen and pelvis have been obtained. 64 slice high-resolution scanner used. 3 mm axial sections have been obtained, post intravenous injection 30 cc Isovue 300 2-D sagittal, coronal reconstructions obtained. Low dose protocols were performed. One or more of the following dose reduction techniques were used; automated exposure control, adjustment of the mA and/or KV according to patient size, use of iterative reconstruction technique. Findings: Mild enlargement cardiac contour No focal liver or splenic lesions Cholelithiasis, gallbladder wall does not appear thickened No common bile duct stones. No pancreatic mass. Subtle low density right liver lesions which may represent cysts Significant renal scarring Aorta normal size Normal appendix No bowel obstruction Minimal urinary bladder wall thickening Advanced degenerative disc disease L5-S1 with cortical erosions contiguous margins IMPRESSION: Cholelithiasis, negative for cholecystitis Recommend renal sonography to assess right renal poorly defined low-density lesions Normal appendix Mild cystitis pattern. Suspicious for osteomyelitis discitis at the L5-S1 level, consider MRI lumbar spine follow-up pre and post intravenous contrast
--- NOTE | 2025-02-02 22:43 | EDNOTE_ITS ---
ED Abdominal Pain RME/HPI General Chief Complaint: Abdominal Pain Stated complaint: RLQ ABD PAIN Time seen by provider: 02/02/25 22:35 Arrival date/time: 02/02/25 22:05 49M with extensive PMH including CAD, CHF, hep B, fungal endocarditis, and DVT presents to ED with several days of worsening RLQ pain and N/V. Patient denies hematuria/dysuria. Also, some fevers/chills. Limitations: no limitations Related Data Previous Rx's ?Medication ?Instructions ?Recorded valacyclovir 1 gram tablet 1,000 mg PO QDAY #5 tabs hydrocortisone 1 % topical cream 1 applic topical QID PRN put for 07/07/24 (Cortisone (hydrocortisone)) itching #28.35 grams entecavir 0.5 mg tablet 0.5 mg PO QDAY #30 tabs 07/01 08/24 sildenafil 25 mg tablet (Viagra) 25 mg PO QDAY PRN sex ual activity 08/11/24 #30 tabs spironolactone 25 mg tablet 25 mg PO QDAY #30 tabs 06/23 isavuconazonium sulfate 186 mg 186 mg PO QDAY #30 caps 09/03/24 capsule (Cresemba) loratadine 10 mg tablet (Claritin) 10 mg PO QDAY PRN a llergy symptoms 09/08/24 #30 tabs aspirin 81 mg tablet,delayed 81 mg PO QDAY 30 days #30 tabs 10/18/24 release (Adult Low Dose Aspirin) metoprolol succinate 25 mg 25 mg PO QDAY 30 days #30 t abs 10/18/24 tablet,extended release 24 hr sacubitril 24 mg-valsartan 26 mg 1 tab PO BID #60 tabs 11/18/24 tablet (Entresto) escitalopram oxalate 10 mg tablet 10 mg PO QDAY #30 ta bs 01/07/25 furosemide 20 mg tablet (Lasix) 20 mg PO BID #60 tabs 01/14/25 gabapentin 300 mg capsule 600 mg (2 x 300 mg) PO TID # 90 caps 01/14/25 lorazepam 0.5 mg tablet 0.5 mg PO QDAY PRN anxiety # 30 tabs 01/15/25 Allergies Allergy/AdvReac Type Severity Reaction Status Date / Time No Known Allergies Allergy Verified 02/02/25 22:11 Review of Systems Review of Systems Systems Reviewed: All systems reviewed, normal except as documented Constitutional Constitutional: Reports system reviewed and no additional complaints, except as documented, Denies fever(s) and Denies headache(s) ENT Ears, Nose, Mouth, and Throat: Denies disequilibrium and Denies headache(s) Cardiovascular Cardiovascular: Reports system reviewed and no additional complaints, except as documented, Denies chest pain and Denies dyspnea Respiratory Respiratory: Reports system reviewed and no additional complaints, except as documented, Denies cough and Denies dyspnea Gastrointestinal Gastrointestinal: Reports system reviewed and no additional complaints, except as documented, Reports as per HPI, Reports abdominal pain, Reports nausea and Reports vomiting Neurologic Neurologic: Reports system reviewed and no additional complaints, except as documented, Denies confusion, Denies disequilibrium and Denies headache(s) Psychiatric Psychiatric: Denies confusion Past Medical History Past Medical History NEUROLOGIC: Negative Cerebrovascular Accident, Alzheimer's Disease or Parkinson's Disease CARDIAC: Positive Cardiac Disorders, Congenital Heart Disease, Valvular Heart Disease and Hypertension; Negative Myocardial Infarction, Congestive Heart Failure or Varicose Veins RESPIRATORY: Positive Cough; Negative Chronic Obstructive Pulmonary Disease (COPD), Asthma or Wheezing GASTROINTESTINAL: Positive Hepatitis GENITOURINARY: Negative Renal Disease or Kidney Stones REPRODUCTIVE: Negative Syphilis ENDOCRINE: Negative Diabetes Mellitus Type 1 or Diabetes Mellitus Type 2 HEMATOLOGIC: Positive Anemia; Negative Sickle Cell Disease PSYCHO/SOCIAL: Positive Recreational Drug Use and Anxiety OTHER HISTORY: Positive Hospitalization, Falls, Blood Transfusions and Hepatitis B Surgical History SURGICAL: Positive Cardiac Surgery, Valve Replacement and Pacemaker Social History SMOKING STATUS: Never smoker ED Exam General Limitations: Present no limitations General appearance: Present alert and in no apparent distress Head Head exam: Present atraumatic Eye Eye exam: Present normal appearance, PERRL and EOMI ENT ENT exam: Present normal exam, normal oropharynx and mucous membranes moist Neck Neck exam: Present normal inspection, full ROM and trachea midline Chest Chest inspection: Present normal inspection and symmetric chest wall rise Respiratory Respiratory exam: Present normal lung sounds bilaterally Cardiovascular Cardiovascular exam: Present regular rate, normal rhythm and normal heart sounds Abdominal Exam Abdominal exam: Present soft and normal bowel sounds Abdominal tenderness: Present RLQ Extremities Exam Extremities exam: Present normal inspection and full ROM Back Exam Back exam: Present normal inspection and full ROM Neurological Exam Neurological exam: Present alert, oriented X3 and CN II-XII intact Psychiatric Psychiatric exam: Present normal affect and normal mood Skin Skin exam: Present warm, dry, intact and normal color Course Quality Measures none Orders Category Date Time Status CT Screening NOW Care 02/02/25 22:[address] abdomen pelvis w con Stat Exams 02/02/25 22:35 Taken CBC Stat Lab 02/02/25 23:15 Completed CMP [Comprehensive Metabolic Panel] Stat Lab 02/02/25 23:15 Completed INR [Prothrombin Time with INR] Stat Lab 02/02/25 23:15 Completed Lactate (Lactic Acid) Stat Lab 02/02/25 23:15 Completed Lipase Stat Lab 02/02/25 23:15 Completed PTT [Partial Thromboplastin Time] Stat Lab 02/02/25 23:15 Completed Procalcitonin Stat Lab 02/02/25 23:15 Completed Urinalysis, C/S if Indicated Stat Lab 02/03/25 02:35 Completed Morphine Inj Med 02/03/25 00:51 Discontinued 5 mg IVP X1 ONE Ondansetron Inj [Zofran Inj] Med 02/02/25 22:35 Discontinued 4 mg IVP X1 ONE Ringers Lactated 1000 ml [Lactated Ringers] 1,000 ml Med 02/03/25 00:51 Discontinued IV 999 mls/hr Vital Signs Vital signs: Vital Signs Temperature 99.2 F 02/02/25 22:28 Pulse Rate 97 02/02/25 22:28 Respiratory Rate 18 02/02/25 22:28 Blood Pressure 139/89 H 02/02/25 22:28 Pulse Oximetry (%) 97 02/02/25 22:28 Oxygen Delivery Method Room Air 02/02/25 22:28 O2 at 97% on RA and WNLs Abdominal Pain MDM MDM Narrative MDM Narrative:: 49M with extensive PMH including CAD, CHF, hep B, fungal endocarditis, and DVT presents to ED with several days of worsening RLQ pain and N/V. Patient denies hematuria/dysuria. Also, some fevers/chills. Physical exam reveals RLQ tenderness. Patient is afebrile, calm, and alert. Telerad CT read unknown R renal mass, as well as gallstones but no evidence of inflammation. Possible cystitis, but UA clean. No leukocytosis. CMP unremarkable, except for Cr of 1.4. Baseline around 1.2. Fluids given. Procal/lactate normal. Patient data External records reviewed:: [facility] previous records Clinical information provided by:: patient Social determinants that could affect healthcare access:: none Patient has the following chronic illnesses:: CAD, CHF, hep B, fungal endocarditis, and DVT How is presenting disease/condition affected by chronic disease/condition?: exacerbated by Evaluation data The following diagnostics were reviewed and interpreted by me:: lab results and radiology exam(s) Lab and/or radiology exams considered but not ordered:: ordered Interpretation Summary: above Medications / Prescriptions Medications or Prescriptions considered but not ordered:: ordered Medication administrations:: Medication Administration History Discontinued Medications Lactated Ringer's (Lactated Ringers) 1,000 mls @ 999 mls/hr IV .Q1H1M ONE Stop: 02/03/25 01:51 Last Infusion: 02/03/25 02:33 Dose: Infused Documented By: Admin: 02/03/25 01:18 Dose: 999 mls/hr Documented By: PIPPA Morphine Sulfate (Morphine Sulf Inj 10 Mg/Ml Vial) 5 mg IVP X1 ONE Stop: 02/03/25 00:52 Last Admin: 02/03/25 01:19 Dose: 5 mg Documented By: PIPPA Ondansetron HCl (Ondansetron Inj 2 Mg/Ml Inj 2 Ml) 4 mg IVP X1 ONE; Protocol Stop: 02/02/25 22:36 Last Admin: 02/02/25 23:16 Dose: 4 mg Documented By: PIPPA above Consultations Consultation(s) initiated? (list below): No Diagnosis Differential diagnosis abdominal pain: abdominal pain, acute appendicitis, calculus of kidney, constipation, diverticulitis, gastroenteritis, pancreatitis, small bowel obstruction and other (renal mass) Most likely diagnosis given after review of the tests above:: renal mass Admission Indicated Admission indicated?: not indicated Admission Request Was there a request for admission?: No Disposition Plan Disposition Plan: Discharge Discharge Attestation Discharge Attestation: The patient and all family members were given an opportunity to ask questions and understood the discharge instructions. Discharge instructions specifically effects, indications for sooner follow up or return to the emergency department, and the expected course of current diagnosis. Patient condition: Stable Discharge Plan Plan Patient Disposition: HOME (Self Care) Discharge Disposition comment: Stable Prescriptions/Referrals Prescriptions/Med Rec: No Action sildenafil [Viagra] 25 mg tablet 25 mg PO QDAY PRN (Reason: sexual activity) Qty: 30 0RF Rx Instructions: administer 30 minutes to 4 hours before activity spironolactone 25 mg tablet 25 mg PO QDAY Qty: 30 5RF Cresemba 186 mg capsule 186 mg PO QDAY Qty: 30 0RF gabapentin 300 mg capsule 600 mg PO TID Qty: 90 0RF furosemide [Lasix] 20 mg tablet 20 mg PO BID Qty: 60 2RF lorazepam 0.5 mg tablet 0.5 mg PO QDAY PRN (Reason: anxiety) Qty: 30 0RF hydrocortisone [Cortisone (hydrocortisone)] 1 % cream 1 applic topical QID PRN (Reason: put for itching) Qty: 28.35 0RF entecavir 0.5 mg tablet 0.5 mg PO QDAY MDD 0.5 mg Qty: 30 3RF loratadine [Claritin] 10 mg tablet 10 mg PO QDAY PRN (Reason: allergy symptoms) Qty: 30 2RF metoprolol succinate 25 mg tablet extended release 24 hr 25 mg PO QDAY 30 Days Qty: 30 2RF aspirin [Adult Low Dose Aspirin] 81 mg tablet,delayed release (DR/EC) 81 mg PO QDAY 30 Days Qty: 30 2RF Entresto 24-26 mg tablet 1 tab PO BID Qty: 60 5RF valacyclovir 1 gram tablet 1,000 mg PO QDAY Qty: 5 0RF escitalopram oxalate 10 mg tablet 10 mg PO QDAY MDD 10 mg Qty: 30 2RF Rx Instructions: Please stop taking your previous medications: Trazadone and Buspar that have been tapered off Referrals: No Primary/Family,Physician [Primary Care Provider] - In 1 week Problem List Clinical Impression: Right renal mass Patient/Caregiver Discharge Instructions Education Materials: Simple Kidney Cysts Additional Instructions: Please follow-up with PCP within 24-48 hours and return immediately if symptoms worsen. Follow-up with PCP about renal mass. Print Language: Macedonian Stand Alone Forms: Patient Portal Info Letter PA/REHAB SPEC Supervising Physician POORNIMA/JULISA Supervising Physician: Dr. Carpenter
[2025-02-02] MEDS: ONDANSETRON INJ 2 MG/ML INJ 2 ML 4 MG IVP (23:16)
[2025-02-02 23:35] LABS: Lactate (Lactic Acid) 1.8 mMol/L (0.4-2.0)
[2025-02-02 23:37] LABS: Basophils # (Auto) 0.0 Thou/mm3 (0.0-0.2); Basophils % (Auto) 0 % (0-2.5); Eosinophils # (Auto) 0.1 Thou/mm3 (0.0-0.5); Eosinophils % (Auto) 1 % (0-10); Hematocrit 47.7 % (41.0-53.0); Hemoglobin 16.5 g/dL (13.5-16.0); Immature Granulocytes Auto 0.03 Thou/mm3 (0.00-0.00); Lymphocytes # (Auto) 1.7 Thou/mm3 (1.0-4.8); Lymphocytes % (Auto) 23 % (10-50); Mean Corpuscular HGB Conc 34.6 g/dl (31.0-37.0); Mean Corpuscular Hemoglobin 31.0 pg (25.0-35.0); Mean Corpuscular Volume 90 fL (80-100); Monocytes # (Auto) 0.6 Thou/mm3 (0.0-0.8); Monocytes % (Auto) 8 % (0-12); Neutrophils # (Auto) 5.0 Thou/mm3 (1.8-7.7); Neutrophils % (Auto) 67 % (37-80); Nucleated Red Blood Cell # 0.00 Thou/mm3 (0.00-0.00); Nucleated Red Blood Cell % 0 /100 WBC (0); Platelet Count 270 Thou/mm3 (140-440); RDW Standard Deviation 43.9 fL (35.1-43.9); Red Blood Count 5.32 Miln/mm3 (4.50-5.90); White Blood Count 7.5 Thou/mm3 (3.8-10.6)
[2025-02-03 00:26] LABS: INR 1.1 (0.9-1.3); Partial Thromboplastin Time 30.3 Seconds (22.0-36.0); Prothrombin Time 11.5 Seconds (9.0-12.2)
[2025-02-03 00:33] LABS: Alanine Aminotransferase 9 U/L (10-49); Albumin, Serum 4.7 gm/dL (3.5-5.0); Albumin/Globulin Ratio 1.5 (1.2-2.2); Alkaline Phosphatase 91 U/L (46-116); Anion Gap 10 (7-16); Aspartate Amino Transferase 15 U/L (0-34); BUN/Creatinine Ratio 13 Ratio (12-20); Bilirubin,Total 0.6 mg/dL (0.3-1.2); Blood Urea Nitrogen 18 mg/dL (9-23); Calcium 9.8 mg/dL (8.3-10.6); Calcium (Corrected) 9.8 mg/dL (8.5-10.1); Carbon Dioxide 26.4 mMol/L (20.0-31.0); Chloride 105 mMol/L (98-107); Creatinine (Component) 1.4 mg/dL (0.6-1.3); Estimated Creatinine Clearance 62.5 mL/min (>60); Globulin 3.1 gm/dL (2.3-3.5); Glucose 112 mg/dL (74-106); Lipase 42 U/L (12-53); Osmolality,Calculated 284 (275-295); Potassium 3.9 mMol/L (3.4-5.1); Procalcitonin 0.09 ng/ml (0.0-0.49); Sodium 141 mMol/L (136-145); Total Protein 7.8 gm/dL (5.7-8.2); eGFR > 60 See Note
[2025-02-03] MEDS: RINGERS LACTATED 1000 ML 1,000 ML 999 ML IV (01:18)
[2025-02-03] MEDS: MORPHINE SULF INJ 10 MG/ML VIAL 5 MG IVP (01:19)
[2025-02-03 01:25] VITALS: BP 124/84; PULSE 63; RESP 18; TEMP 36.7; O2SAT 96
--- NOTE | 2025-02-03 02:09 | PRELIM_ITS ---
CT scan of the abdomen and pelvis with intravenous contrast (axial sections with sagittal and coronal reformats) February 03, 2025 0050 hours Clinical History: Right lower quadrant pain Comparison: None Findings: The liver, pancreas, spleen and adrenals are unremarkable. Multiple calculi are noted within the gallbladder, without evidence of gallbladder wall thickening or pericholecystic fluid. There is bilateral renal cortical scarring. There are indeterminate right renal hypodense lesions, the largest measuring 1.6 cm (HU 26). No evidence of bowel obstruction. The appendix is within normal limits (axial image # [id number] ) . There is no mesenteric or retroperitoneal adenopathy. The urinary bladder is partially distended and shows mild wall thickening; possibility of cystitis cannot be excluded. There is no free fluid or free air. Degenerative changes are identified in the spine. There is left basal streaky atelectasis. There is mild cardiomegaly with intracardiac leadless pacer. Please note that evaluation of bowel loops is limited due to absence of oral contrast. Impression: 1. No evidence of acute appendicitis. 2. Cholelithiasis without evidence of acute cholecystitis. 3. Indeterminate right renal hypodense lesions. 4. Partially distended urinary bladder with mild wall thickening; possibility of cystitis cannot be excluded. 5. Mild cardiomegaly with intracardiac leadless pacer. 6. Other findings as described above. Suggest correlation with clinical findings, comparison with prior studies and follow up accordingly. Report Electronically Signed By: Wiley Fisher 02/03/2025 2:08:26 AM [EST]
[2025-02-03 02:51] LABS: Collection Type, Urine Clean Catch; RBC,Urine 0 /hpf (0-3); WBC,Urine 0 /hpf (0-5)
[2025-02-03 03:01] LABS: Bacteria,Urine Rare; Bilirubin,Urine Negative (Negative); Blood,Urine Negative (Negative); Clarity,Urine Clear (Clear/Hazy); Color,Urine Yellow (Lt Yel-Yel); Culture Indicated,Urine Not Indicated; Glucose, Urine Negative (Negative); Hyaline Casts,Urine < 1 /hpf (0-1); Ketones,Urine Negative (Negative); Leukocyte Esterase,Urine Negative (Negative); Nitrite,Urine Negative (Negative); PH,Urine 6.0 (5.0-7.0); Protein,Urine Trace (Neg - Trace); Specific Gravity,Urine 1.027 (1.001-1.035); Squamous Epithelial Cell,Urine 2 /hpf (0-5); Urobilinogen,Urine Negative mg/dL (0.0-1.0)
[2025-02-03 03:30] VITALS: BP 122/72; PULSE 72; RESP 16; TEMP 37; O2SAT 98
== END 2025-02-03 03:31 | disposition home or self-care (01) ==
PROVIDERS: Physician Assistant; Emergency Provider Emergency Medicine
DX: N28.89 Other specified disorders of kidney and ureter (principal)
CPT/HCPCS: 36415; 74177; 80053; 81001; 83605; 83690; 84145; 85025; 85610; 85730; 96361; 96374; 96375; 99283; A4649; J2270; J2405; J7120; Q9967

== ENCOUNTER 2025-02-11 11:29 | Outpatient (AMB) | payer MEDICAID, SELFPAY ==
[2025-02-11 11:42] VITALS: BP 114/78; PULSE 70; RESP 19; TEMP 36.2; O2SAT 98; BMI 31.4
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
== END 2025-02-11 12:16 | disposition home or self-care (01) ==
LOC: HODAHC 11:29
PROVIDERS: Supervising Provider Internal Medicine
DX: R93.421 Abnormal radiologic findings on diagnostic imaging of right kidney (principal); F41.9 Anxiety disorder, unspecified; F32.A Depression, unspecified; I38 Endocarditis, valve unspecified; B18.1 Chronic viral hepatitis B without delta-agent; I50.20 Unspecified systolic (congestive) heart failure; G62.9 Polyneuropathy, unspecified; G47.00 Insomnia, unspecified
CPT/HCPCS: 99212; G0463

== ENCOUNTER 2025-04-27 13:52 | Outpatient (AMB) | payer MEDICAID, SELFPAY ==
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
[2025-04-27 14:44] VITALS: BP 127/84; PULSE 69; RESP 16; TEMP 36.5; O2SAT 98; BMI 32.1
== END 2025-04-27 15:15 | disposition home or self-care (01) ==
LOC: HODAHC 13:52
PROVIDERS: Supervising Provider Internal Medicine
DX: M54.9 Dorsalgia, unspecified (principal); F41.9 Anxiety disorder, unspecified; F32.A Depression, unspecified; Z95.4 Presence of other heart-valve replacement; B18.1 Chronic viral hepatitis B without delta-agent; R93.5 Abnormal findings on diagnostic imaging of other abdominal regions, including retroperitoneum; G62.9 Polyneuropathy, unspecified; F51.01 Primary insomnia; I50.20 Unspecified systolic (congestive) heart failure; Z86.79 Personal history of other diseases of the circulatory system
CPT/HCPCS: 99214; G0463

== ENCOUNTER 2025-06-28 13:30 | Emergency (ER) | payer MEDICAID, SELFPAY ==
[2025-06-28] VITALS (8 sets, daily range): BP systolic 149–163; BP diastolic 92–99; PULSE 67–88; RESP 12–98; TEMP 36.6–36.8; O2SAT 95–99; BMI 28.0
--- NOTE | 2025-06-28 14:06 | XR_ITS ---
Study: Chest radiograph. INDICATION: Chest pain for 2 days. TECHNIQUE: AP upright chest radiograph at 1416 hours 28 June 2025. Comparison with 09 September 2023. FINDINGS: The heart is normal in size. A mitral replacement valve is noted. There has been a median sternotomy repair. There is prominence of the left atrial appendage. Superior mediastinal structures are narrow. The right lung is fully expanded and free from infiltrates or nodules. There is no right effusion. The left costophrenic angle is permanently scarred and elevated. The possibility of a permanent subcu pulmonary fluid collection cannot be ruled out. A pneumatocele could be present in the superior segment of the left upper lobe. The balance of the left upper lobe is fully expanded and free from alveolar infiltrates or nodules. Vasculature is normal in distribution. The descending aorta is moderately tortuous. Impression: 1. No acute diagnostic abnormality. 2. No interval change.
--- NOTE | 2025-06-28 14:06 | PD.EDSOB ---
ED SOB =RME/HPI General Chief Complaint: Shortness of Breath/Dyspnea Stated Complaint: DIFF BREATHING, WHEEZING, COUGH Time Seen by Provider: 06/28/25 13:34 Source: patient Arrival date/time: 06/28/25 13:30 50-year-old male with a history of heart failure presents to the emergency room with a chief complaint of difficulty breathing, coughing, wheezing, fevers x 3 days Mode of arrival: ambulatory Limitations: no limitations Related Data Previous Rx's ?Medication ?Instructions ?Recorded valacyclovir 1 gram tablet 1,000 mg PO QDAY #5 tabs 05/05/24 hydrocortisone 1 % topical cream 1 applic topical QID PRN put for 07/07/24 (Cortisone (hydrocortisone)) itching #28.35 grams entecavir 0.5 mg tablet 0.5 mg PO QDAY #30 tabs 07/21/24 isavuconazonium sulfate 186 mg 186 mg PO QDAY #30 caps 09/03/24 capsule (Cresemba) loratadine 10 mg tablet (Claritin) 10 mg PO QDAY PRN allergy symptoms 09/08/24 #30 tabs sacubitril 24 mg-valsartan 26 mg 1 tab PO BID #60 tabs 11/18/24 tablet (Entresto) lorazepam 0.5 mg tablet 0.5 mg PO QDAY PRN anxiety #30 tabs 02/11/25 escitalopram oxalate 10 mg tablet 10 mg PO QDAY #30 tabs 04/21/25 aspirin 81 mg tablet,delayed 81 mg PO QDAY 30 days #30 tabs 04/27/25 release (Adult Low Dose Aspirin) furosemide 20 mg tablet (Lasix) 20 mg PO BID #60 tabs 04/27/25 gabapentin 300 mg capsule 600 mg (2 x 300 mg) PO TID #90 caps 04/27/25 metoprolol succinate 25 mg 25 mg PO QDAY 30 days #30 tabs 04/27/25 tablet,extended release 24 hr zolpidem 5 mg tablet 5 mg PO QHS PRN insomnia #30 tabs 04/27/25 Allergies Allergy/AdvReac Type Severity Reaction Status Date / Time No Known Allergies Allergy Verified 06/28/25 13:31 Review of Systems Review of Systems Systems Reviewed: All systems reviewed, normal except as documented Constitutional Constitutional: Reports system reviewed and no additional complaints, except as documented, Denies fatigue, Denies fever(s), Denies headache(s) and Denies weakness Eyes Eyes: Reports system reviewed and no additional complaints, except as documented, Denies blurry vision and Denies change in vision ENT Ears, Nose, Mouth, and Throat: Reports system reviewed and no additional complaints, except as documented, Denies otalgia, Denies headache(s), Denies nasal congestion, Denies throat swelling and Denies vertigo Cardiovascular Cardiovascular: Reports system reviewed and no additional complaints, except as documented, Denies chest pain, Reports dyspnea and Reports dyspnea on exertion Respiratory Respiratory: Reports system reviewed and no additional complaints, except as documented, Denies chest congestion, Reports cough, Reports dyspnea, Reports dyspnea on exertion, Reports excessive phlegm production and Denies wheezing Gastrointestinal Gastrointestinal: Reports system reviewed and no additional complaints, except as documented, Denies abdominal pain, Denies cramping, Denies nausea and Denies vomiting Genitourinary Genitourinary: Reports system reviewed and no additional complaints, except as documented, Denies dysuria and Denies hematuria Musculoskeletal Musculoskeletal: Reports system reviewed and no additional complaints, except as documented and Denies back pain Integumentary/Breasts Skin/Breast: Reports system reviewed and no additional complaints, except as documented and Denies wounds Neurologic Neurologic: Reports system reviewed and no additional complaints, except as documented, Denies confusion, Denies headache(s), Denies lack of coordination, Denies vertigo and Denies weakness Psychiatric Psychiatric: Reports system reviewed and no additional complaints, except as documented, Denies anxiety, Denies confusion, Denies depression, Denies paranoia, Denies suicidal ideation and Denies tactile hallucinations Endocrine Endocrine: Reports system reviewed and no additional complaints, except as documented and Denies fatigue Hematologic/Lymphatic Hematologic/Lymphatic: Reports system reviewed and no additional complaints, except as documented and Denies lymphadenopathy Allergic/Immunologic Allergic/Immunologic: Reports system reviewed and no additional complaints, except as documented, Denies throat swelling, Denies urticaria and Denies wheezing Past Medical History Past Medical History NEUROLOGIC: Negative Cerebrovascular Accident, Alzheimer's Disease or Parkinson's Disease CARDIAC: Positive Cardiac Disorders, Congenital Heart Disease, Valvular Heart Disease and Hypertension; Negative Myocardial Infarction, Congestive Heart Failure or Varicose Veins RESPIRATORY: Positive Cough; Negative Chronic Obstructive Pulmonary Disease (COPD), Asthma or Wheezing GASTROINTESTINAL: Positive Hepatitis GENITOURINARY: Negative Renal Disease or Kidney Stones REPRODUCTIVE: Negative Syphilis ENDOCRINE: Negative Diabetes Mellitus Type 1 or Diabetes Mellitus Type 2 HEMATOLOGIC: Positive Anemia; Negative Sickle Cell Disease PSYCHO/SOCIAL: Positive Recreational Drug Use and Anxiety OTHER HISTORY: Positive Hospitalization, Falls, Blood Transfusions and Hepatitis B Surgical History SURGICAL: Positive Cardiac Surgery, Valve Replacement and Pacemaker Social History SMOKING STATUS: Never smoker ED Exam General Limitations: Present no limitations General appearance: Present alert and in no apparent distress Head Head exam: Present atraumatic Eye Eye exam: Present normal appearance, PERRL and EOMI ENT ENT exam: Present normal exam, normal oropharynx and mucous membranes moist Neck Neck exam: Present normal inspection, full ROM and trachea midline Chest Chest inspection: Present normal inspection and symmetric chest wall rise Respiratory Respiratory exam: Present normal lung sounds bilaterally; Absent respiratory distress, wheezes, stridor, accessory muscle use or prolonged expiratory phase Cardiovascular Cardiovascular exam: Present regular rate, normal rhythm, normal heart sounds, +S1 and +S2; Absent bradycardia, tachycardia, irregular rhythm, systolic murmur, diastolic murmur, rubs, gallop, clicks or JVD Abdominal Exam Abdominal exam: Present soft and normal bowel sounds Extremities Exam Extremities exam: Present normal inspection and full ROM Back Exam Back exam: Present normal inspection and full ROM Neurological Exam Neurological exam: Present alert, oriented X3 and CN II-XII intact Psychiatric Psychiatric exam: Present normal affect and normal mood Skin Skin exam: Present warm, dry, intact and normal color Course Quality Measures none Orders Category Date Time Status Bedside COVID-19 Antigen Test NOW Care 06/28/25 14:06 Active Bedside Influenza A&B Antigen Test NOW Care 06/28/25 14:06 Active EKG (ED ONLY) *Do not use* NOW Care 06/28/25 14:08 Completed EKG (ED Only) Stat Exams 06/28/25 14:08 Draft XR chest 1V portable Stat Exams 06/28/25 14:06 Taken B-Type Natriuretic Peptide Stat Lab 06/28/25 14:13 Received CBC Stat Lab 06/28/25 14:13 Received Comprehensive Metabolic Panel Stat Lab 06/28/25 14:13 Received Troponin I Stat Lab 06/28/25 14:13 Received Albuterol/Ipratr Rt Casandra [Duoneb Rt Casnadra] Med 06/28/25 14:06 Discontinued 3 ml INH X1 ONE dexAMETHasone INJ [Decadron Inj] Med 06/28/25 14:06 Discontinued 10 mg PO X1 ONE Vital Signs Vital signs: Vital Signs Temperature 97.8 F 06/28/25 14:01 Pulse Rate 73 06/28/25 14:01 Respiratory Rate 20 06/28/25 14:01 Blood Pressure 163/99 H 06/28/25 14:01 Pulse Oximetry (%) 99 06/28/25 14:01 Oxygen Delivery Method Room Air 06/28/25 14:01 Shortness of Breath / Dyspnea MDM Narrative MDM Narrative:: 50-year-old male with a history of heart failure presents to the emergency room with a chief complaint of difficulty breathing, coughing, wheezing, fevers x 3 days Patient data External records reviewed:: [facility] previous records Clinical information provided by:: patient Social determinants that could affect healthcare access:: none Patient has the following chronic illnesses:: Heart failure How is presenting disease/condition affected by chronic disease/condition?: exacerbated by Evaluation data The following diagnostics were reviewed and interpreted by me:: lab results and radiology exam(s) Lab and/or radiology exams considered but not ordered:: Labs and radiology exams considered and ordered Interpretation Summary: N/A Medications / Prescriptions Medications or Prescriptions considered but not ordered:: Medication given Medication administrations:: Medication Administration History Discontinued Medications Albuterol/Ipratropium (Albuterol/Ipratropium (Duoneb) Rt Casandra 3 Ml Nebu) 3 ml INH X1 ONE Stop: 06/28/25 14:07 Dexamethasone Sodium Phosphate (Dexamethasone Sod Phos Inj 10 Mg/Ml Vial) 10 mg PO X1 ONE Stop: 06/28/25 14:07 Last Admin: 06/28/25 14:32 Dose: 10 mg Documented By: ED Medication given Consultations Consultation(s) initiated? (list below): No Diagnosis Shortness of Breath Differential Diagnosis: congestive heart failure, community acquired pneumonia and other (COVID-19/influenza A) Admission Indicated Admission indicated?: not indicated Admission Request Was there a request for admission?: No Disposition Plan Disposition Plan: Discharge Discharge Attestation Discharge Attestation: The patient and all family members were given an opportunity to ask questions and understood the discharge instructions. Discharge instructions specifically effects, indications for sooner follow up or return to the emergency department, and the expected course of current diagnosis. Patient condition: Stable Discharge Plan Prescriptions/Referrals Prescriptions/Med Rec: No Action Cresemba 186 mg capsule 186 mg PO QDAY Qty: 30 0RF hydrocortisone [Cortisone (hydrocortisone)] 1 % cream 1 applic topical QID PRN (Reason: put for itching) Qty: 28.35 0RF entecavir 0.5 mg tablet 0.5 mg PO QDAY MDD 0.5 mg Qty: 30 3RF loratadine [Claritin] 10 mg tablet 10 mg PO QDAY PRN (Reason: allergy symptoms) Qty: 30 2RF Entresto 24-26 mg tablet 1 tab PO BID Qty: 60 5RF lorazepam 0.5 mg tablet 0.5 mg PO QDAY PRN (Reason: anxiety) Qty: 30 0RF aspirin [Adult Low Dose Aspirin] 81 mg tablet,delayed release (DR/EC) 81 mg PO QDAY 30 Days Qty: 30 2RF zolpidem 5 mg tablet 5 mg PO QHS PRN (Reason: insomnia) Qty: 30 1RF gabapentin 300 mg capsule 600 mg PO TID Qty: 90 0RF metoprolol succinate 25 mg tablet extended release 24 hr 25 mg PO QDAY 30 Days Qty: 30 2RF furosemide [Lasix] 20 mg tablet 20 mg PO BID Qty: 60 2RF valacyclovir 1 gram tablet 1,000 mg PO QDAY Qty: 5 0RF escitalopram oxalate 10 mg tablet 10 mg PO QDAY MDD 10 mg Qty: 30 2RF Rx Instructions: Please stop taking your previous medications: Trazadone and Buspar that have been tapered off Referrals: No Primary/Family,Physician [Primary Care Provider] - In 1 week Patient/Caregiver Discharge Instructions Print Language: Yi
--- NOTE | 2025-06-28 14:08 | EKG_ITS ---
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
[2025-06-28 14:41] LABS: Basophils # (Auto) 0.0 Thou/mm3 (0.0-0.2); Basophils % (Auto) 0 % (0-2.5); Eosinophils # (Auto) 0.1 Thou/mm3 (0.0-0.5); Eosinophils % (Auto) 1 % (0-10); Hematocrit 50.8 % (41.0-53.0); Hemoglobin 16.8 g/dL (13.5-16.0); Immature Granulocytes Auto 0.03 Thou/mm3 (0.00-0.00); Lymphocytes # (Auto) 2.0 Thou/mm3 (1.0-4.8); Lymphocytes % (Auto) 26 % (10-50); Mean Corpuscular HGB Conc 33.1 g/dl (31.0-37.0); Mean Corpuscular Hemoglobin 30.4 pg (25.0-35.0); Mean Corpuscular Volume 92 fL (80-100); Monocytes # (Auto) 0.5 Thou/mm3 (0.0-0.8); Monocytes % (Auto) 6 % (0-12); Neutrophils # (Auto) 5.2 Thou/mm3 (1.8-7.7); Neutrophils % (Auto) 67 % (37-80); Nucleated Red Blood Cell # 0.00 Thou/mm3 (0.00-0.00); Nucleated Red Blood Cell % 0 /100 WBC (0); Platelet Count 223 Thou/mm3 (140-440); RDW Standard Deviation 43.8 fL (35.1-43.9); Red Blood Count 5.53 Miln/mm3 (4.50-5.90); White Blood Count 7.7 Thou/mm3 (3.8-10.6)
[2025-06-28] MEDS: ALBUTEROL/IPRATROPIUM (Duoneb) RT SOL 3 ML NEBU INH (14:43)
[2025-06-28 15:13] LABS: B-Type Natriuretic Peptide 526 pg/mL (0-100)
[2025-06-28 15:20] LABS: Alanine Aminotransferase 9 U/L (10-49); Albumin, Serum 4.8 gm/dL (3.5-5.0); Albumin/Globulin Ratio 1.5 (1.2-2.2); Alkaline Phosphatase 77 U/L (46-116); Anion Gap 10 (7-16); Aspartate Amino Transferase 19 U/L (0-34); BUN/Creatinine Ratio 10 Ratio (12-20); Bilirubin,Total 0.5 mg/dL (0.3-1.2); Blood Urea Nitrogen 11 mg/dL (9-23); Calcium 9.0 mg/dL (8.3-10.6); Calcium (Corrected) 9.0 mg/dL (8.5-10.1); Carbon Dioxide 25.7 mMol/L (20.0-31.0); Chloride 106 mMol/L (98-107); Creatinine (Component) 1.1 mg/dL (0.6-1.3); Estimated Creatinine Clearance 87.4 mL/min (>60); Globulin 3.2 gm/dL (2.3-3.5); Glucose 89 mg/dL (74-106); Osmolality,Calculated 281 (275-295); Potassium 3.9 mMol/L (3.4-5.1); Sodium 142 mMol/L (136-145); Total Protein 8.0 gm/dL (5.7-8.2); eGFR > 60 See Note
--- NOTE | 2025-06-28 15:26 | PD.EDRME ---
Rapid Medical Screening Exam RME Arrival date/time: 06/28/25 13:30 50-year-old male with a history of heart failure presents to the emergency room with a chief complaint of difficulty breathing, coughing, wheezing, fevers x 3 days I have greeted and performed a focused initial assessment of this patient. A comprehensive ED assessment and evaluation of the patient, analysis of all test results, and completion of the medical decision making process will be conducted by additional ED providers. Chief Complaint: Shortness of Breath/Dyspnea Time Seen by Provider: 06/28/25 13:34 Vital signs: Vital Signs Temperature 97.8 F 06/28/25 14:01 Pulse Rate 73 06/28/25 14:01 Respiratory Rate 20 06/28/25 14:01 Blood Pressure 163/99 H 06/28/25 14:01 Pulse Oximetry (%) 99 06/28/25 14:01 Oxygen Delivery Method Room Air 06/28/25 14:01 Vital signs reviewed by provider: Yes Exam: Clear bilateral lung sounds Strong and regular rhythm Clinical Impression: CHF exacerbation/pneumonia
[2025-06-28 15:27] LABS: Troponin I 0.154 ng/mL (0.0-0.045)
[2025-06-28 16:59] LABS: Lactate (Lactic Acid) 1.6 mMol/L (0.4-2.0)
[2025-06-28 17:15] LABS: INR 1.0 (0.9-1.3); Partial Thromboplastin Time 29.1 Seconds (22.0-36.0); Prothrombin Time 11.1 Seconds (9.0-12.2)
[2025-06-28] MEDS: FUROSEMIDE INJ 10 MG/ML 4ML VIAL 40 MG IVP (17:57)
[2025-06-28] MEDS: LORazepam 2 MG/ML VIAL 0.5 MG IVP (17:58)
--- NOTE | 2025-06-28 18:03 | EDNOTE_ITS ---
ED SOB =RME/HPI General Chief Complaint: Shortness of Breath/Dyspnea Stated Complaint: DIFF BREATHING, WHEEZING, COUGH Time Seen by Provider: 06/28/25 13:34 Arrival date/time: 06/28/25 13:30 Limitations: no limitations RME / HPI RME / HPI Narrative: 06/28/25 13:30 50-year-old male with a history of heart failure presents to the emergency room with a chief complaint of difficulty breathing, coughing, wheezing, fevers x 3 days I have greeted and performed a focused initial assessment of this patient. A comprehensive ED assessment and evaluation of the patient, analysis of all test results, and completion of the medical decision making process will be conducted by additional ED providers. DR. COLÓN MAIN ED EVALUATION: 50 year old male with history of CHF presents to the ED for evaluation of shortness of breath beginning 3 days ago. Patient states the shortness of breath has been progressive and is described as being more noticeable with exertion, but also present at rest. There has been no associated fever, chills, or chest pain. Patient also complains of a runny nose, which is not typical for his prior CHF exacerbation. The patient denies any significant cough, sputum production, or recent sick contacts. The patient also mentions feeling more anxious than usual and has had progressive weight gain over the past few days. Exam: Clear bilateral lung sounds Strong and regular rhythm Impression: CHF exacerbation/pneumonia Related Data Previous Rx's ?Medication ?Instructions ?Recorded valacyclovir 1 gram tablet 1,000 mg PO QDAY #5 tabs hydrocortisone 1 % topical cream 1 applic topical QID PRN put for 07/07/24 (Cortisone (hydrocortisone)) itching #28.35 grams entecavir 0.5 mg tablet 0.5 mg PO QDAY #30 tabs 07/01 08/24 isavuconazonium sulfate 186 mg 186 mg PO QDAY #30 caps 09/03/24 capsule (Cresemba) loratadine 10 mg tablet (Claritin) 10 mg PO QDAY PRN a llergy symptoms 09/08/24 #30 tabs sacubitril 24 mg-valsartan 26 mg 1 tab PO BID #60 tabs 11/18/24 tablet (Entresto) lorazepam 0.5 mg tablet 0.5 mg PO QDAY PRN anxiety # 30 tabs 02/11/25 escitalopram oxalate 10 mg tablet 10 mg PO QDAY #30 ta bs 04/21/25 aspirin 81 mg tablet,delayed 81 mg PO QDAY 30 days #30 tabs 04/27/25 release (Adult Low Dose Aspirin) furosemide 20 mg tablet (Lasix) 20 mg PO BID #60 tabs 04/27/25 gabapentin 300 mg capsule 600 mg (2 x 300 mg) PO TID # 90 caps 04/27/25 metoprolol succinate 25 mg 25 mg PO QDAY 30 days #30 t abs 04/27/25 tablet,extended release 24 hr zolpidem 5 mg tablet 5 mg PO QHS PRN insomnia #30 tabs 04/27/25 furosemide 80 mg tablet (Lasix) 80 mg PO QAM #30 tabs 06/28/25 spironolactone 50 mg tablet 50 mg PO QAM #30 tabs 06/01 Allergies Allergy/AdvReac Type Severity Reaction Status Date / Time No Known Allergies Allergy Verified 06/28/25 13:31 Review of Systems Review of Systems Systems Reviewed: All systems reviewed, normal except as documented Past Medical History Past Medical History CARDIAC: Positive Cardiac Disorders, Congenital Heart Disease, Valvular Heart Disease and Hypertension RESPIRATORY: Positive Cough GASTROINTESTINAL: Positive Hepatitis HEMATOLOGIC: Positive Anemia PSYCHO/SOCIAL: Positive Recreational Drug Use and Anxiety OTHER HISTORY: Positive Hospitalization, Falls and Hepatitis B Surgical History SURGICAL: Positive Cardiac Surgery, Valve Replacement and Pacemaker Social History SMOKING STATUS: Never smoker ED Exam General Limitations: Present no limitations General appearance: Present alert and in no apparent distress Head Head exam: Present atraumatic Eye Eye exam: Present normal appearance, PERRL and EOMI ENT ENT exam: Present normal exam, normal oropharynx and mucous membranes moist Neck Neck exam: Present normal inspection, full ROM and trachea midline Chest Chest inspection: Present normal inspection and symmetric chest wall rise Respiratory Respiratory exam: Present other (faint crackles left base ) Cardiovascular Cardiovascular exam: Present regular rate, normal rhythm and normal heart sounds Abdominal Exam Abdominal exam: Present soft and normal bowel sounds Extremities Exam Extremities exam: Present normal inspection and full ROM Back Exam Back exam: Present normal inspection and full ROM Neurological Exam Neurological exam: Present alert, oriented X3 and CN II-XII intact Psychiatric Psychiatric exam: Present normal affect and normal mood Skin Skin exam: Present warm, dry, intact and normal color Course Quality Measures none Orders Category Date Time Status Bedside COVID-19 Antigen Test NOW Care 06/28/25 14:06 Completed Bedside Influenza A&B Antigen Test NOW Care 06/28/25 14:06 Completed Retail Sales Merchandiser NOW Care 06/28/25 16:11 Completed Continuous Pulse Oximetry NOW Care 06/28/25 16:11 Completed EKG (ED ONLY) *Do not use* NOW Care 06/28/25 14:08 Completed Insert IV NOW Care 06/28/25 16:11 Completed EKG (ED Only) Stat Exams 06/28/25 14:08 Draft XR chest 1V portable Stat Exams 06/28/25 14:06 Completed B-Type Natriuretic Peptide Stat Lab 06/28/25 14:13 Completed Blood Culture (Lab) Stat Lab 06/28/25 16:46 Completed CBC Stat Lab 06/28/25 14:13 Completed Comprehensive Metabolic Panel Stat Lab 06/28/25 14:13 Completed Lactate (Lactic Acid) Stat Lab 06/28/25 16:46 Completed Partial Thromboplastin Time Stat Lab 06/28/25 16:46 Completed Prothrombin Time with INR Stat Lab 06/28/25 16:46 Completed Troponin I Stat Lab 06/28/25 14:13 Completed Troponin I Stat Lab 06/28/25 19:11 Completed Albuterol/Ipratr Rt Casandra [Duoneb Rt Casandra] Med 06/28/25 14:06 Discontinued 3 ml INH X1 ONE Furosemide Inj [Lasix Inj] Med 06/28/25 16:11 Discontinued 40 mg IVP X1 ONE Ketorolac Inj [Toradol Inj] Med 06/28/25 20:51 Discontinued 15 mg IVP X1 ONE LORazepam [Ativan Inj] Med 06/28/25 17:22 Discontinued 0.5 mg IVP X1 ONE dexAMETHasone INJ [Decadron Inj] Med 06/28/25 14:06 Discontinued 10 mg PO X1 ONE metOLazone [Zaroxolyn] Med 06/28/25 16:11 Discontinued 5 mg PO X1 ONE Oxygen Delivery NOW RT 06/28/25 16:11 Completed Vital Signs Vital signs: Vital Signs Temperature 97.8 F 06/28/25 14:01 Pulse Rate 73 06/28/25 14:01 Respiratory Rate 20 06/28/25 14:01 Blood Pressure 163/99 H 06/28/25 14:01 Pulse Oximetry (%) 99 06/28/25 14:01 Oxygen Delivery Method Room Air 06/28/25 14:01 Pulse ox is 99% on room air which is adequate. Shortness of Breath / Dyspnea MDM Narrative MDM Narrative:: Betty Castorena am scribing for and in the presence of Dr. Colón. 1800: Patient signed out to Dr. Luevano, pending repeat troponin and final disposition. Patient data External records reviewed:: [facility] previous records Clinical information provided by:: patient Social determinants that could affect healthcare access:: none Patient has the following chronic illnesses:: CHF How is presenting disease/condition affected by chronic disease/condition?: exacerbated by Evaluation data The following diagnostics were reviewed and interpreted by me:: lab results, radiology exam(s) and EKG tracing(s) (EKG @ 14:27, interpreted by me, normal sinus rhythm, rate 71, no STEMI. ) Lab and/or radiology exams considered but not ordered:: None Interpretation Summary: Ordering Physician: Alfred Brown Date of Service: 06/28/25 Procedure(s): XR chest 1V portable Accession Number(s): [id number] cc: Alfred Brown; NO PRIMARY/FAMILY,PHYSICIAN; Marcial Ruff MD~ Study: Chest radiograph. INDICATION: Chest pain for 2 days. TECHNIQUE: AP upright chest radiograph at 1416 hours 28 June 2025. Comparison with 09 September 2023. FINDINGS: The heart is normal in size. A mitral replacement valve is noted. There has been a median sternotomy repair. There is prominence of the left atrial appendage. Superior mediastinal structures are narrow. The right lung is fully expanded and free from infiltrates or nodules. There is no right effusion. The left costophrenic angle is permanently scarred and elevated. The possibility of a permanent subcu pulmonary fluid collection cannot be ruled out. A pneumatocele could be present in the superior segment of the left upper lobe. The balance of the left upper lobe is fully expanded and free from alveolar infiltrates or nodules. Vasculature is normal in distribution. The descending aorta is moderately tortuous. Impression: 1. No acute diagnostic abnormality. 2. No interval change. Dictated By: Marcial Ruff MD Signed By: <Electronically signed by Marcial Ruff MD in OV> 06/28/25 1444 Medications / Prescriptions Medications or Prescriptions considered but not ordered:: None Medication administrations:: Medication Administration History Discontinued Medications Albuterol/Ipratropium (Albuterol/Ipratropium (Duoneb) Rt Casandra 3 Ml Nebu) 3 ml INH X1 ONE Stop: 06/28/25 14:07 Last Admin: 06/28/25 14:43 Dose: 3 ml Documented By: [email or web address] Dexamethasone Sodium Phosphate (Dexamethasone Sod Phos Inj 10 Mg/Ml Vial) 10 mg PO X1 ONE Stop: 06/28/25 14:07 Last Admin: 06/28/25 14:32 Dose: 10 mg Documented By: ED Furosemide (Furosemide Inj 10 Mg/Ml 4ml Vial) 40 mg IVP X1 ONE Stop: 06/28/25 16:12 Last Admin: 06/28/25 17:57 Dose: 40 mg Documented By: SM Ketorolac Tromethamine (Ketorolac Inj 30 Mg/Ml Vial) 15 mg IVP X1 ONE Stop: 06/28/25 20:52 Last Admin: 06/28/25 20:59 Dose: 15 mg Documented By: SF Lorazepam (Lorazepam 2 Mg/Ml Vial) 0.5 mg IVP X1 ONE Stop: 06/28/25 17:23 Last Admin: 06/28/25 17:58 Dose: 0.5 mg Documented By: SM Metolazone (Metolazone 2.5 Mg Tablet) 5 mg PO X1 ONE Stop: 06/28/25 16:12 Last Admin: 06/28/25 18:05 Dose: 5 mg Documented By: KRISHNA See above Consultations Consultation(s) initiated? (list below): No Diagnosis Shortness of Breath Differential Diagnosis: acute exacerbation of chronic obstructive airways disease, congestive heart failure, community acquired pneumonia and asthma with exacerbation Most likely diagnosis given after review of the tests above:: Shortness of breath Admission Indicated Admission indicated?: not indicated Explain why admission is indicated or not indicated:: Signed out pending final disposition Admission Request Was there a request for admission?: No Disposition Plan Disposition Plan: other (specify) (Signed out to Dr. Luevano pending final disposition ) Discharge Plan Plan Patient Disposition: HOME (Self Care) Prescriptions/Referrals Prescriptions/Med Rec: New furosemide [Lasix] 80 mg tablet 80 mg PO QAM Qty: 30 0RF spironolactone 50 mg tablet 50 mg PO QAM Qty: 30 0RF No Action Cresemba 186 mg capsule 186 mg PO QDAY Qty: 30 0RF hydrocortisone [Cortisone (hydrocortisone)] 1 % cream 1 applic topical QID PRN (Reason: put for itching) Qty: 28.35 0RF entecavir 0.5 mg tablet 0.5 mg PO QDAY MDD 0.5 mg Qty: 30 3RF loratadine [Claritin] 10 mg tablet 10 mg PO QDAY PRN (Reason: allergy symptoms) Qty: 30 2RF Entresto 24-26 mg tablet 1 tab PO BID Qty: 60 5RF lorazepam 0.5 mg tablet 0.5 mg PO QDAY PRN (Reason: anxiety) Qty: 30 0RF aspirin [Adult Low Dose Aspirin] 81 mg tablet,delayed release (DR/EC) 81 mg PO QDAY 30 Days Qty: 30 2RF zolpidem 5 mg tablet 5 mg PO QHS PRN (Reason: insomnia) Qty: 30 1RF gabapentin 300 mg capsule 600 mg PO TID Qty: 90 0RF metoprolol succinate 25 mg tablet extended release 24 hr 25 mg PO QDAY 30 Days Qty: 30 2RF furosemide [Lasix] 20 mg tablet 20 mg PO BID Qty: 60 2RF valacyclovir 1 gram tablet 1,000 mg PO QDAY Qty: 5 0RF escitalopram oxalate 10 mg tablet 10 mg PO QDAY MDD 10 mg Qty: 30 2RF Rx Instructions: Please stop taking your previous medications: Trazadone and Buspar that have been tapered off Referrals: No Primary/Family,Physician [Primary Care Provider] - In 1 week Problem List Clinical Impression: Congestive heart failure Patient/Caregiver Discharge Instructions Education Materials: Heart Failure Dc Additional Instructions: Increase your Lasix from 40 mg once a day to 80 mg once a day. Increase your spironolactone from 25 mg once a day to 50 mg once a day. Continue other current medications. Return to ER if condition worsens such as worsening shortness of breath or chest pain. Follow-up with your center machine set up operator. Print Language: British Stand Alone Forms: Marilee Award Info., Patient Portal Info Letter
--- NOTE | 2025-06-28 18:23 | PD.EDADDENDU ---
Emergency Room Addendum <Janie Stanley - Last Filed: 06/28/25 18:23> Addendum Narrative: 1800: Care assumed from Dr. Ramirez, the previous shift emergency physician. Past medical, surgical, social and family history reviewed. Vitals and home medications reviewed. Results and treatment plan discussed. I will assume the care of the patient at this time and will follow the patient. Please refer to the emergency department record for history and examination from initial visit. <Isaac Luevano DO - Last Filed: 06/28/25 20:37> Addendum Narrative: 1800: Care assumed from Dr. Ramirez, the previous shift emergency physician. Past medical, surgical, social and family history reviewed. Vitals and home medications reviewed. Results and treatment plan discussed. I will assume the care of the patient at this time and will follow the patient. Please refer to the emergency department record for history and examination from initial visit. Case was signed out to me awaiting the result of the second troponin. The second troponin actually went down from 0.154-0.147. EKG shows no ST segment elevations or appreciable or clinically meaningful ST segment depressions or T wave inversions. Chest x-ray was relatively clear. Patient is in stable condition without current complaint of chest pain. His Lasix will be increased from 40 mg once a day to 40 mg twice a day and the spironolactone will be increased from 25 mg once a day to 50 mg once a day. Patient is agreeable to discharge. He does have cardiology follow-up. He is to return to the emergency room as needed or if condition worsens such as worsening shortness of breath or chest pain.
[2025-06-28 19:45] LABS: Troponin I 0.147 ng/mL (0.0-0.045)
[2025-06-28] MEDS: KETOROLAC INJ 30 MG/ML VIAL 15 MG IVP (20:59)
== END 2025-06-28 21:25 | disposition home or self-care (01) ==
PROVIDERS: Nurse Practitioner Family; Emergency Provider Family Medicine
DX: I11.0 Hypertensive heart disease with heart failure (principal); I50.9 Heart failure, unspecified; R94.31 Abnormal electrocardiogram [ECG] [EKG]; R07.9 Chest pain, unspecified
CPT/HCPCS: 36415; 71045; 80053; 83605; 83880; 84484; 85025; 85610; 85730; 87040; 87502; 87635; 93005; 94640; 96374; 96375; 99285; A9270; J1100; J1885; J1938; J2060